=== PATIENT | male | born 1980 | race Two or more races ===

== ENCOUNTER 2016-12-08 16:06 | Inpatient (IN) | payer OTHER ==
[2016-12-08 16:51] VITALS: BMI 21.3
[2016-12-08] MEDS ORDERED: SODIUM CHLORIDE 1,000 ML IV STA ×2 (17:25→20:42)
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
[2016-12-08] MEDS ORDERED: chlordiazePOXIDE HCL 25 MG CAPSULE PO ONE (17:51)
[2016-12-08] MEDS ORDERED: chlordiazePOXIDE HCL 25 MG CAPSULE ONE ×2 (18:03→22:59)
[2016-12-08 18:19] LABS: BASOPHIL 1.1 % (0-2.0); EOSINOPHIL 0.3 % (0-4.5); MCHC 35.3 g/dl (32.0-35.9); MEAN CELL VOLUME 107.6 fl (80-96); MEAN PLT VOLUME 9.2 fl (7.5-11.1); PLATELET COUNT 171 K/MM3 (134-434); RDW 16.7 % (11.9-15.9); WHITE BLOOD COUNT 18.4 K/mm3 (4.0-10.0)
[2016-12-08 18:33] LABS: INR 1.74 (0.82-1.09); PROTHROMBIN TIME (PATIENT) 19.4 SEC (9.98-11.88)
[2016-12-08 18:55] LABS: ALBUMIN 1.9 g/dl (3.4-5.0); ALK PHOS 425 U/L (45-117); ANION GAP 12 (8-16); BILIRUBIN,TOTAL 13.8 mg/dL (0.2-1.0); CALCIUM 8.3 mg/dL (8.5-10.1); CO2 27 mmol/L (21-32); CREATININE 0.6 mg/dL (0.7-1.3); GLUCOSE,RANDOM 91 mg/dL (74-106); SGOT/AST 314 U/L (15-37); SGPT/ALT 36 U/L (12-78); TOT PROT 6.5 g/dl (6.4-8.2)
[2016-12-08 19:44] LABS: PLATELET ESTIMATE ADEQUATE (NORMAL)
[2016-12-08 19:45] LABS: MACROCYTOSIS 2+; TARGET CELLS 2+
[2016-12-08 21:31] LABS: URINE APPEARANCE CLOUDY; URINE BLOOD NEGATIVE (NEGATIVE); URINE COLOR AMBER; URINE GLUCOSE (UA) 1+ (NEGATIVE); URINE KETONE NEGATIVE (NEGATIVE); URINE LEUK ESTERASE NEGATIVE (NEGATIVE); URINE NITRITE NEGATIVE (NEGATIVE); URINE UROBILINOGEN 4.0 E.U/dl mg/dL (0.2-1.0)
[2016-12-08 21:32] LABS: URINE PROTEIN 2+ (NEGATIVE)
[2016-12-08 21:34] LABS: URINE MUCUS MANY; URINE WBC 6 /hpf (3-5)
[2016-12-08 21:57] LABS: URINE MARIJUANA THC NEGATIVE ng/ml (CUTOFF=50)
[2016-12-08] MEDS ORDERED: VANCOMYCIN 1 GRAM (PRE-DOCKED) 250 ML IVPB ONE (22:59)
[2016-12-08] MEDS ORDERED: VANCOMYCIN 1,000 MG in DEXTROSE 5%-WATER - 500 ML IVPB ONE (22:59)
[2016-12-08] MEDS ORDERED: PIPERACILLIN/TAZOB 3.375 GM 3.375 GM in DEXTROSE 5%-WATER - 50 ML IVPB ONE (22:59)
[2016-12-08] MEDS ORDERED: PIPERACILLIN/TAZOB 3.375 GM 50 ML IVPB ONE (22:59)
--- NOTE | 2016-12-08 23:29 | PN ---
Teaching Attending Note Name of Resident: Gautam Mejía ATTENDING PHYSICIAN STATEMENT I saw and evaluated the patient. I reviewed the resident's note and discussed the case with the resident. I agree with the resident's findings and plan as documented. SUBJECTIVE: 36 yo M with hx. of htn, liver cirrhosis, etoh abuse, who presents from [facility] for eval. of abdominal pain. States he was recently diagnosed with a UTI, but did not take any medications for it as he was "drinking." States he has never seen a intramural director, but was diagnosed with a "liver problem." Pt. is a poor historian. OBJECTIVE: Physical: VS: Vital Signs Period Temp Pulse Resp BP Sys/Malik Pulse Ox Last 24 Hr 98.7 F-98.9 F 107-110 17-18 119-128/58-96 97-98 GEN: NAD, Resting in bed, able to speak full sentences, [id number] HEENT: NCAT, PERRL, Icteric Sclera, Throat without erythema or exudates CARD: RRR S1, S2 RESP: CTAB ABD: BS X4, distended abdomen, with abdominal strai, Hepatomegaly EXT: - C/C/E CBCD WBC 18.4 K/mm3 (4.0-10.0) H 12/08/16 18:15 RBC 3.21 M/mm3 (4.00-5.60) L 12/08/16 18:15 Hgb 12.2 GM/dL (11.7-16.9) 12/08/16 18:15 Hct 34.5 % (35.4-49) L 12/08/16 18:15 MCV 107.6 fl (80-96) H 12/08/16 18:15 MCHC 35.3 g/dl (32.0-35.9) 12/08/16 18:15 RDW 16.7 % (11.9-15.9) H 12/08/16 18:15 Plt Count 171 K/MM3 (134-434) 12/08/16 18:15 MPV 9.2 fl (7.5-11.1) 12/08/16 18:15 CMP Sodium 138 mmol/L (136-145) 12/08/16 18:15 Potassium 3.6 mmol/L (3.5-5.1) 12/08/16 18:15 Chloride 99 mmol/L (98-107) 12/08/16 18:15 Carbon Dioxide 27 mmol/L (21-32) 12/08/16 18:15 Anion Gap 12 (8-16) 12/08/16 18:15 BUN 5 mg/dL (7-18) L 12/08/16 18:15 Creatinine 0.6 mg/dL (0.7-1.3) L 12/08/16 18:15 Creat Clearance w eGFR > 60 (>60) 12/08/16 18:15 Random Glucose 91 mg/dL (74-106) 12/08/16 18:15 Calcium 8.3 mg/dL (8.5-10.1) L 12/08/16 18:15 Total Bilirubin 13.8 mg/dL (0.2-1.0) H 12/08/16 18:15 AST 314 U/L (15-37) H 12/08/16 18:15 ALT 36 U/L (12-78) 12/08/16 18:15 Alkaline Phosphatase 425 U/L (45-117) H 12/08/16 18:15 Total Protein 6.5 g/dl (6.4-8.2) 12/08/16 18:15 Albumin 1.9 g/dl (3.4-5.0) L 12/08/16 18:15 CXR- Pending EKG: NSR Q waves anteroseptal leads CT A/P: IMPRESSION: Ascites is noted which is probably moderate in volume. Hepatomegaly is seen with associated multifocal fatty infiltration. Mild splenomegaly. Mesenteric varices. There is mild diffuse gallbladder wall thickening probably in association with hepatic disease / ascites and less likely on the basis of acute cholecystitis. No radiopaque biliary calculus is noted. If there is clinical concern for possible acute cholecystitis additional evaluation utilizing a radionuclide HIDA scan may be considered. Several mildly enlarged gastrohepatic ligament lymph nodes are noted. These lymph nodes are probably hyperplastic in nature. Correlation with 3 month follow-up CT or MRI is suggested to document stability/resolution. ASSESSMENT AND PLAN: 36 yo M with hx. of cirrhosis and etoh abuse presents with abdominal pain found to have Sepsis 1.) Severe Sepsis - Likely due to SBP - Cefotaxime 2 q8 - Paracentesis- with fluid studies - GI consult - [place] Cx - Repeat LA 2.) ETOH Abuse w hx. of Cirrhosis - MELD 23, GI consult, chk. Afp - Librium/ CIWA - Detox consult - Banana Bag - Thiamine and Folic A 3.) Hyperbilirubinemia - Due to liver sx - Direct Dominic 4.) Macrocytic Anemia - Chk. B12/Folate 5.) HTN - Hold home meds 6.) Dvt Ppx - SCD Place in Med-Sx
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
[2016-12-09] MEDS ORDERED: chlordiazePOXIDE HCL 25 MG CAPSULE PO PRN (01:44)
[2016-12-09] MEDS ORDERED: WATER IVPB ONE (02:00)
[2016-12-09] MEDS ORDERED: WATER IVPB SCH (02:00)
[2016-12-09] MEDS ORDERED: DEXTROSE 5% IVPB ONE (02:00)
[2016-12-09] MEDS ORDERED: CEFOTAXIME SODIUM IVPB ONE (02:00)
[2016-12-09] MEDS ORDERED: CEFOTAXIME SODIUM IVPB SCH (02:00)
[2016-12-09] MEDS ORDERED: DEXTROSE 5% IVPB SCH (02:00)
[2016-12-09] MEDS ORDERED: SODIUM CHLORIDE 250 ML IV STA (02:24)
[2016-12-09] MEDS: FOLIC ACID INJECTION - 1 MG, THIAMINE HCL 100 MG, MULTIVIT INJECTION ADULT 10 ML in SOD... IVPB ONE ×2 (02:47→03:52)
[2016-12-09] MEDS ORDERED: DEXTROSE 5%-WATER 100 ML IVPB ONE (03:07)
[2016-12-09] MEDS: CEFTRIAXONE 2 GM in DEXTROSE 5%-WATER 100 ML IVPB SCH ×2 (03:12→10:52)
[2016-12-09] MEDS: chlordiazePOXIDE HCL 25 MG CAPSULE PO SCH ×4 (06:11→22:39)
[2016-12-09 07:17] LABS: BASOPHIL 0.4 % (0-2.0); EOSINOPHIL 0.7 % (0-4.5); MCH 37.7 pg (25.7-33.7); MCHC 34.9 g/dl (32.0-35.9); MEAN CELL VOLUME 108.1 fl (80-96); MEAN PLT VOLUME 9.4 fl (7.5-11.1); NEUTROPHILS 80.4 % (42.8-82.8); PLATELET COUNT 155 K/MM3 (134-434); WHITE BLOOD COUNT 18.9 K/mm3 (4.0-10.0)
[2016-12-09 07:35] LABS: CALCIUM 8.1 mg/dL (8.5-10.1)
[2016-12-09 07:36] LABS: INR 1.83 (0.82-1.09); PROTHROMBIN TIME (PATIENT) 20.4 SEC (9.98-11.88)
[2016-12-09 07:39] LABS: ACTIVATED PTT 45.9 SECONDS (26.9-34.4)
[2016-12-09 07:41] LABS: ALBUMIN 1.8 g/dl (3.4-5.0); ALK PHOS 385 U/L (45-117); ANION GAP 8 (8-16); CO2 28 mmol/L (21-32); CREATININE 0.6 mg/dL (0.7-1.3); GLUCOSE,RANDOM 81 mg/dL (74-106); MAGNESIUM 1.6 mg/dL (1.8-2.4); PHOSPHOROUS 2.5 mg/dL (2.5-4.9); SGOT/AST 278 U/L (15-37); SGPT/ALT 30 U/L (12-78); TOT PROT 6.1 g/dl (6.4-8.2)
[2016-12-09 08:15] LABS: BILIRUBIN,DIRECT 10.9 mg/dL (0.0-0.2)
[2016-12-09 08:19] LABS: BILIRUBIN,TOTAL 13.9 mg/dL (0.2-1.0)
[2016-12-09] MEDS ORDERED: PHYTONADIONE 5 MG TABLET PO ONE (09:59)
[2016-12-09] MEDS ORDERED: amLODIPine BESYLATE 5 MG TABLET (FP) PO SCH (10:00)
[2016-12-09] MEDS: PANTOPRAZOLE 20 MG TABLET (FP) PO SCH (10:51)
--- NOTE | 2016-12-09 10:52 | EKG ---
Test Reason : Blood Pressure : / mmHG Vent. Rate : 110 BPM Atrial Rate : 110 BPM P-R Int : 202 ms QRS Dur : 092 ms QT Int : 336 ms P-R-T Axes : 065 -38 078 degrees QTc Int : 454 ms SINUS TACHYCARDIA LEFT AXIS DEVIATION INCOMPLETE RIGHT BUNDLE BRANCH BLOCK CANNOT RULE OUT ANTEROSEPTAL INFARCT , AGE UNDETERMINED ABNORMAL ECG NO PREVIOUS ECGS AVAILABLE Confirmed by TOBISA ELLIOTT, ANA ([id number]) on 12/09/2016 10:52:31 AM Referred By: Confirmed By:ANA COLLADO MD
[2016-12-09] MEDS: FOLIC ACID 1 MG TABLET (FP) PO SCH (10:55)
[2016-12-09] MEDS: THIAMINE HCL 100 MG TABLET (FP) PO SCH (10:55)
--- NOTE | 2016-12-09 12:10 | CONSULT ---
Consult Detox [facility] Reason for Current Admission/Consult: Alcohol detox Referred by:: Gautam Mejía Res - History History of Present Illness: 36 y/o man came to [facility] for detox,however he was c/o severe abdominal pain which necessitated ED evaluation. Librium detox protocol in progress. Pt. has massive ascites for which he'll need paracenthesis. - History Source History Provided By: Patient, Medical Record - Alcohol/Substance Use Hx Alcohol Use: Yes - Current Drug/Alcohol Use Alcohol Route: Oral Frequency: Daily Amount used: Beer >2(6 packs) Date of Last Use: 12/08/16 - Significant Medical Findings: Laboratory Last Values WBC 18.9 K/mm3 (4.0-10.0) H 12/09/16 06:30 RBC 3.17 M/mm3 (4.00-5.60) L 12/09/16 06:30 Hgb 12.0 GM/dL (11.7-16.9) 12/09/16 06:30 Hct 34.3 % (35.4-49) L 12/09/16 06:30 MCV 108.1 fl (80-96) H 12/09/16 06:30 MCH 37.7 pg (25.7-33.7) H 12/09/16 06:30 MCHC 34.9 g/dl (32.0-35.9) 12/09/16 06:30 RDW 17.0 % (11.9-15.9) H 12/09/16 06:30 Plt Count 155 K/MM3 (134-434) 12/09/16 06:30 MPV 9.4 fl (7.5-11.1) 12/09/16 06:30 Neutrophils % 80.4 % (42.8-82.8) 12/09/16 06:30 Lymphocytes % 13.1 % (8-40) D 12/09/16 06:30 Monocytes % 5.4 % (3.8-10.2) 12/09/16 06:30 Eosinophils % 0.7 % (0-4.5) D 12/09/16 06:30 Basophils % 0.4 % (0-2.0) 12/09/16 06:30 Platelet Estimate Adequate (NORMAL) 12/08/16 18:15 Macrocytosis 2+ 12/08/16 18:15 Target Cells 2+ 12/08/16 18:15 INR 1.83 (0.82-1.09) H 12/09/16 06:30 PTT (Actin FS) 45.9 SECONDS (26.9-34.4) H 12/09/16 06:30 Sodium 137 mmol/L (136-145) 12/09/16 06:30 Potassium 3.2 mmol/L (3.5-5.1) L 12/09/16 06:30 Chloride 101 mmol/L (98-107) 12/09/16 06:30 Carbon Dioxide 28 mmol/L (21-32) 12/09/16 06:30 Anion Gap 8 (8-16) 12/09/16 06:30 BUN 5 mg/dL (7-18) L 12/09/16 06:30 Creatinine 0.6 mg/dL (0.7-1.3) L 12/09/16 06:30 Creat Clearance w eGFR > 60 (>60) 12/09/16 06:30 Random Glucose 81 mg/dL (74-106) 12/09/16 06:30 Lactic Acid 2.0 mmol/L (0.4-2.0) 12/09/16 08:00 Calcium 8.1 mg/dL (8.5-10.1) L 12/09/16 06:30 Phosphorus 2.5 mg/dL (2.5-4.9) 12/09/16 06:30 Magnesium 1.6 mg/dL (1.8-2.4) L 12/09/16 06:30 Total Bilirubin 13.9 mg/dL (0.2-1.0) H 12/09/16 06:30 Direct Bilirubin 10.9 mg/dL (0.0-0.2) H* 12/09/16 06:30 GGT Cancelled 12/09/16 09:30 AST 278 U/L (15-37) H 12/09/16 06:30 ALT 30 U/L (12-78) 12/09/16 06:30 Alkaline Phosphatase 385 U/L (45-117) H 12/09/16 06:30 Total Protein 6.1 g/dl (6.4-8.2) L 12/09/16 06:30 Albumin 1.8 g/dl (3.4-5.0) L 12/09/16 06:30 Lipase 564 U/L (73-393) H 12/09/16 06:30 Vitamin B12 1458 pg/ml (180-914) H 12/09/16 06:30 Serum Folate 6 ng/ml (3.1-17.5) 12/09/16 06:30 Urine Color Lyla 12/08/16 21:20 Urine Appearance Cloudy 12/08/16 21:20 Urine pH 5.0 (5.0-8.0) 12/08/16 21:20 Ur Specific [place] 1.025 (1.005-1.025) 12/08/16 21:20 Urine Protein 2+ (NEGATIVE) H 12/08/16 21:20 Urine Glucose (UA) 1+ (NEGATIVE) H 12/08/16 21:20 Urine Ketones Negative (NEGATIVE) 12/08/16 21:20 Urine Blood Negative (NEGATIVE) 12/08/16 21:20 Urine Nitrite Negative (NEGATIVE) 12/08/16 21:20 Urine Bilirubin 4.0 (NEGATIVE) 12/08/16 21:20 Urine Urobilinogen 4.0 e.u/dl mg/dL (0.2-1.0) 12/08/16 21:20 Urine RBC None /hpf (0-3) 12/08/16 21:20 Urine WBC 6 /hpf (3-5) 12/08/16 21:20 Ur Epithelial Cells Few /hpf (FEW) 12/08/16 21:20 Urine Mucus Many 12/08/16 21:20 Opiates Screen Negative ng/ml (CGDFPD=899) 12/08/16 21:20 Methadone Screen Negative ng/ml (XJLUOF=443) 12/08/16 21:20 Acetaminophen < 10 ug/ml (10.0-30.0) L 12/09/16 09:30 Barbiturate Screen Negative ng/ml (ZUANND=919) 12/08/16 21:20 Phencyclidine Screen Negative ng/ml (CUTOFF=25) 12/08/16 21:20 Ur Amphetamines Screen Negative ng/ml (DVTTQH=908) 12/08/16 21:20 MDMA (Ecstasy) Screen Negative ng/ml (XCRZMH=687) 12/08/16 21:20 Benzodiazepines Screen Positive ng/ml (NBHGFJ=790) 12/08/16 21:20 Cocaine Screen Negative ng/ml (BNWOAT=209) 12/08/16 21:20 U Marijuana (THC) Screen Negative ng/ml (CUTOFF=50) 12/08/16 21:20 Alcohol, Quantitative 99.0 mg/dl (0-5) H* 12/08/16 17:51 Blood Type AB POSITIVE 12/09/16 10:54 Antibody Screen Negative 12/08/16 17:51 labs noted CIWA Score - CIWA Score Nausea/Vomitin Muscle Tremors: 4-Moderate,w/Arms Extend Anxiety: 4-Mod. Anxious/Guarded Agitation: 4-Moderately Restless Paroxysmal Sweats: 3 Orientation: 0-Oriented Tacttile Disturbances: 1-Very Mild Itch/Numbness Auditory Disturbances: 0-None Visual Disturbances: 0-None Headache: 0-None Present CIWA-Ar Total Score: 18 Assessment Plan - Diagnosis (1) Ascites Status: Acute Qualifiers: Ascites type: due to alcoholic cirrhosis Qualified Code(s): K70.31 - Alcoholic cirrhosis of liver with ascites (2) Alcohol dependence with uncomplicated withdrawal Status: Acute - Medication Detox Regimen/Protocol: Librium
--- NOTE | 2016-12-09 13:34 | PN ---
Physical Exam: SUBJECTIVE: Patient seen and examined at bed side. he presented from detox facility with LLQ abdominal pain and hematuria. the pain is local,non radiating , 6/10 increased with Alcohol and decreased with laying on left side. last drink was yesterday. He denies any fever, chills, D/C/N/V . He denies any dysuria, frequency but he reports multiple episode of vomiting blood and dark urine.he reports losing 100 pounds within uncertain time. around 5 pm patient complained of chest pain 6/10 , reproducible, non radiating , and MD work up was ordered. OBJECTIVE: Vital Signs Period Temp Pulse Resp BP Sys/Malik Pulse Ox Last 24 Hr 98.3 F-99.4 F 105-117 18-24 105-123/56-84 97-97 GENERAL: The patient is awake, alert, and fully oriented, in mild distress. HEAD: Normal with no signs of trauma. EYES: PERRL, sclera icteric, conjunctiva clear. No ptosis. ENT: moist mucous membranes. NECK: Trachea midline, full range of motion, supple. LUNGS: Breath sounds equal, clear to auscultation bilaterally, no wheezes, no crackles, no accessory muscle use. HEART: tachycardic ,Regular rate and rhythm, S1, S2 without murmur, rub or gallop. ABDOMEN: Soft, LUQ tenderness,distended, diffuse ascities , normoactive bowel sounds, no guarding, no rebound, + hepatosplenomegaly, no masses + shifting dulness, testicle normal size. No Gynecomastia , Occult blood was send to lab. No astrexis. EXTREMITIES: warm, well-perfused, no edema. NEUROLOGICAL: Normal speech, gait not observed. PSYCH: Normal mood, normal affect. SKIN: Warm, dry, normal turgor, no rashes or lesions noted Laboratory Results - last 24 hr 12/09/16 12/09/16 12/09/16 01:01 02:20 06:30 WBC 18.9 H RBC 3.17 L Hgb 12.0 Hct 34.3 L MCV 108.1 H MCH 37.7 H MCHC 34.9 RDW 17.0 H Plt Count 155 MPV 9.4 Neutrophils % 80.4 Lymphocytes % 13.1 D Monocytes % 5.4 Eosinophils % 0.7 D Basophils % 0.4 INR PTT (Actin FS) Sodium Potassium Chloride Carbon Dioxide Anion Gap BUN Creatinine Creat Clearance w eGFR Random Glucose Lactic Acid 2.8 H* 2.9 H* Calcium Phosphorus Magnesium Total Bilirubin Direct Bilirubin GGT AST ALT Alkaline Phosphatase Total Protein Albumin Lipase Vitamin B12 Serum Folate Acetaminophen Blood Type 12/09/16 12/09/16 12/09/16 06:30 06:30 06:30 WBC RBC Hgb Hct MCV MCH MCHC RDW Plt Count MPV Neutrophils % Lymphocytes % Monocytes % Eosinophils % Basophils % INR 1.83 H PTT (Actin FS) 45.9 H Sodium 137 Potassium 3.2 L Chloride 101 Carbon Dioxide 28 Anion Gap 8 BUN 5 L Creatinine 0.6 L Creat Clearance w eGFR > 60 Random Glucose 81 Lactic Acid Calcium 8.1 L Phosphorus 2.5 Magnesium 1.6 L Total Bilirubin 13.9 H Direct Bilirubin 10.9 H* GGT 417 H AST 278 H ALT 30 Alkaline Phosphatase 385 H Total Protein 6.1 L Albumin 1.8 L Lipase 564 H Vitamin B12 Serum Folate Acetaminophen Blood Type Active Medications Generic Name Dose Route Start Last Admin Trade Name Freq PRN Reason Stop Dose Admin Chlordiazepoxide HCl 25 mg 12/09/16 01:44 Librium - PO 12/12/16 01:43 Q4H PRN WITHDRAWAL(CONT SUBST) Chlordiazepoxide HCl 50 mg 12/09/16 05:00 12/09/16 10:51 Librium - PO 12/09/16 23:01 50 mg [id number] RODNEY Administration Chlordiazepoxide HCl 25 mg 12/10/16 05:00 Librium - PO 12/10/16 23:01 [id number] RODNEY Chlordiazepoxide HCl 15 mg 12/11/16 05:00 Librium - PO 12/11/16 23:01 [id number] RODNEY Folic Acid 1 mg 12/09/16 10:00 Folic Acid - PO DAILY [facility] Ceftriaxone Sodium 2 gm/ 100 mls @ 200 mls/hr 12/09/16 02:30 12/09/16 10:52 Dextrose IVPB Not Given DAILY [facility] Pantoprazole Sodium 20 mg 12/09/16 10:00 12/09/16 10:51 Protonix - PO 20 mg DAILY RODNEY Administration Thiamine HCl 100 mg 12/09/16 10:00 Vitamin B1 - PO DAILY [facility] CBC,CMP WBC 18.9 K/mm3 (4.0-10.0) H 12/09/16 06:30 RBC 3.17 M/mm3 (4.00-5.60) L 12/09/16 06:30 Hgb 12.0 GM/dL (11.7-16.9) 12/09/16 06:30 Hct 34.3 % (35.4-49) L 12/09/16 06:30 MCV 108.1 fl (80-96) H 12/09/16 06:30 MCH 37.7 pg (25.7-33.7) H 12/09/16 06:30 MCHC 34.9 g/dl (32.0-35.9) 12/09/16 06:30 RDW 17.0 % (11.9-15.9) H 12/09/16 06:30 Plt Count 155 K/MM3 (134-434) 12/09/16 06:30 MPV 9.4 fl (7.5-11.1) 12/09/16 06:30 Neutrophils % 80.4 % (42.8-82.8) 12/09/16 06:30 Lymphocytes % 13.1 % (8-40) D 12/09/16 06:30 Monocytes % 5.4 % (3.8-10.2) 12/09/16 06:30 Eosinophils % 0.7 % (0-4.5) D 12/09/16 06:30 Basophils % 0.4 % (0-2.0) 12/09/16 06:30 Platelet Estimate Adequate (NORMAL) 12/08/16 18:15 Macrocytosis 2+ 12/08/16 18:15 Target Cells 2+ 12/08/16 18:15 Sodium 137 mmol/L (136-145) 12/09/16 06:30 Potassium 3.2 mmol/L (3.5-5.1) L 12/09/16 06:30 Chloride 101 mmol/L (98-107) 12/09/16 06:30 Carbon Dioxide 28 mmol/L (21-32) 12/09/16 06:30 Anion Gap 8 (8-16) 12/09/16 06:30 BUN 5 mg/dL (7-18) L 12/09/16 06:30 Creatinine 0.6 mg/dL (0.7-1.3) L 12/09/16 06:30 Creat Clearance w eGFR > 60 (>60) 12/09/16 06:30 Random Glucose 81 mg/dL (74-106) 12/09/16 06:30 Lactic Acid 2.0 mmol/L (0.4-2.0) 12/09/16 08:00 Calcium 8.1 mg/dL (8.5-10.1) L 12/09/16 06:30 Phosphorus 2.5 mg/dL (2.5-4.9) 12/09/16 06:30 Magnesium 1.6 mg/dL (1.8-2.4) L 12/09/16 06:30 Total Bilirubin 13.9 mg/dL (0.2-1.0) H 12/09/16 06:30 Direct Bilirubin 10.9 mg/dL (0.0-0.2) H* 12/09/16 06:30 GGT Cancelled 12/09/16 09:30 AST 278 U/L (15-37) H 12/09/16 06:30 ALT 30 U/L (12-78) 12/09/16 06:30 Alkaline Phosphatase 385 U/L (45-117) H 12/09/16 06:30 Total Protein 6.1 g/dl (6.4-8.2) L 12/09/16 06:30 Albumin 1.8 g/dl (3.4-5.0) L 12/09/16 06:30 Lipase 564 U/L (73-393) H 12/09/16 06:30 Vitamin B12 1458 pg/ml (180-914) H 12/09/16 06:30 Serum Folate 6 ng/ml (3.1-17.5) 12/09/16 06:30 12/09/2016 CXR: No acute pathology CT Abdomen: Ascities, hepatomegaly, mild splenomegaly, esophageal varices, Gallbladder thickening with no calculus ,consider HIDA scan. ASSESSMENT/PLAN: 36 y.o. M with pmh of HTN and ETOH abuse presenting with LLQ abdominal pain admitted for sepsis likely 2/2 to SBP and ETOH withdrawal #Severe Sepsis likely 2/2 to SBP -Hx of cirrhosis and ETOH abuse -leukocytosis, tachycardia, lactic acid 2.8 -low protinet low sodium diet -Ceftriaxone 2g IV daily, day 2 -Lactic acid 2.8, tend down to 2 -IVF NS 250 ml Bolus given in the ED -F/u Urine/Blood Cx -IR consult, Dr. Henley for possible paracentesis -Pracentesis was defferef till tomorow due to high INR -Lisa K 10 G IVBP -FFP will be given at 10 PM and repeat INR AM -GI consult, Dr. Shane -AFP pending -Blood level Tylenol negative #ETOH abuse and Alcoholic Cirrhosis, hepatic transaminitis -elevated alk phos and hyperbilirubinemia -AST 316, ALT 36. - Likely secondary to alcohol - RUQ US after taping - AFP pending - Repeat Liver enzyme -Librium protocol -Check serial CIWA scores -Banana Bag given - thiamine 100 mg po daily, folic acid 1 mg PO daily -Detox consult, Dr. Bonilla # Chest pain , likely costochondritis vs previous trauma can not R/O MD - pain is reproducible -EKG, CXR, trop was ordered. -trend trop -morphine 1 gm IVBP for pain -night team will follow the result. - #Total Hyperbilirubinemia likely 2/2 to liver cirrhosis vs choledocholethiasis -Tbili 13.8 -Trend labs - direct bilirubin 10.8 -US after taping -consider MRI per GI # Hypokalemia , Acute -K 3.2 -Repeat in AM -MG 1.8 , -Mg 800 mg PO -repeat Mg - #Macrocytic anemia 2/2 to ETOH abuse -MCV 108 -B12 and folate levels WNL #HTN -Holding Norvasc 5 mg PO daily #FEN/GI -Banana Bag -Wnl -Low sodium, low protein diet #PPx -DVT- SCDs -GI: Protonix 20 mg daily #Dispo -Admit to med surg -IV abx (Ceftriaxone) -Librium protocol Visit type - Emergency Visit Emergency Visit: Yes ED Registration Date: 12/09/16 Care time: The patient presented to the Emergency Department on the above date and was hospitalized for further evaluation of their emergent condition. - New Patient This patient is new to me today: No - Critical Care Critical Care patient: No - Discharge Referral Referred to [facility] Med P.C.: No
[2016-12-09] MEDS ORDERED: PHYTONADIONE 10 MG/1 ML AMP IVPB ONE (15:24)
--- NOTE | 2016-12-09 17:34 | PN ---
Teaching Attending Note Name of Resident: Jose Luis Andrade ATTENDING PHYSICIAN STATEMENT I saw and evaluated the patient. I reviewed the resident's note and discussed the case with the resident. I agree with the resident's findings and plan as documented. SUBJECTIVE: Patient complaining of abdominal pain. OBJECTIVE: Vital Signs Period Temp Pulse Resp BP Sys/Malik Pulse Ox Last 24 Hr 97 F-99.4 F 105-117 18-24 105-132/56-99 97-97 HEART: S1S2, tachycardic LUNGS: Clear ABDOMEN: Soft, distended, mild diffuse tenderness, normal BS, (+) ascites EXTREMITIES: No edema Current Medications Generic Name Dose Route Start Last Admin Trade Name Freq PRN Reason Stop Dose Admin Chlordiazepoxide HCl 25 mg 12/09/16 01:44 Librium - PO 12/12/16 01:43 Q4H PRN WITHDRAWAL(CONT SUBST) Chlordiazepoxide HCl 50 mg 12/09/16 05:00 12/09/16 17:15 Librium - PO 12/09/16 23:01 50 mg [id number] RODNEY Administration Chlordiazepoxide HCl 25 mg 12/10/16 05:00 Librium - PO 12/10/16 23:01 [id number] RODNEY Chlordiazepoxide HCl 15 mg 12/11/16 05:00 Librium - PO 12/11/16 23:01 [id number] RODNEY Folic Acid 1 mg 12/09/16 10:00 12/09/16 10:55 Folic Acid - PO Not Given DAILY [facility] Ceftriaxone Sodium 2 gm/ 100 mls @ 200 mls/hr 12/09/16 02:30 12/09/16 10:52 Dextrose IVPB Not Given DAILY [facility] Pantoprazole Sodium 20 mg 12/09/16 10:00 12/09/16 10:51 Protonix - PO 20 mg DAILY RODNEY Administration Thiamine HCl 100 mg 12/09/16 10:00 12/09/16 10:55 Vitamin B1 - PO Not Given DAILY [facility] ASSESSMENT AND PLAN: This is a 36 year old man with a history of HTN, cirrhosis, alcohol abuse who presented to the ER with LLQ abdominal pain. 1. Severe sepsis (leukocytosis, tachycardia, lactic acid 2.8) possibly secondary to SBP - Continue Rocephin - Plan for paracentesis by IR - GI consult - Follow-up blood and urine cultures 2. Continuous alcohol abuse - Continue Librium detox - Continue thiamine, folic acid 3. Alcoholic cirrhosis 4. Hepatic transaminitis with elevated alk phos and hyperbilirubinemia - Likely secondary to alcohol - RUQ US - AFP pending 5. Macrocytosis secondary to alcohol 6. HTN - Norvasc held
[2016-12-09] MEDS ORDERED: morphine CARPU-JECT 2 MG/1 ML DISP.SYRIN IVPUSH ONE (17:49)
[2016-12-09] MEDS ORDERED: PHYTONADIONE 10 MG/1 ML AMP ONE (18:35)
[2016-12-10] MEDS: chlordiazePOXIDE HCL 25 MG CAPSULE PO SCH ×4 (05:45→22:05)
--- NOTE | 2016-12-10 07:29 | PN ---
Physical Exam: SUBJECTIVE: Patient seen and examined at bed side , no chest pain was reported, abdominal pain improved. he denies any fever, chills, N/V/D/C. OBJECTIVE: Vital Signs Period Temp Pulse Resp BP Sys/Malik Pulse Ox Last 24 Hr 97 F-99.6 F 105-117 20-21 106-132/60-99 97-98 GENERAL: The patient is awake, alert, and fully oriented, in no acute distress. HEAD: Normal with no signs of trauma. EYES: PERRL, sclera icteric, conjunctiva palor. No ptosis. ENT: Ears normal, nares patent, moist mucous membranes. NECK: Trachea midline, full range of motion, supple. LUNGS: Breath sounds equal, clear to auscultation bilaterally, no wheezes, no crackles, no accessory muscle use. HEART: Regular rate and rhythm, S1, S2 without murmur, rub or gallop. ABDOMEN: Soft, LUQ tenderness,distended, diffuse ascities , normoactive bowel sounds, no guarding, no rebound, + hepatosplenomegaly, no masses + shifting dulness, testicle normal size. No Gynecomastia , No astrexis. EXTREMITIES: 2+ pulses, warm, well-perfused, no edema. NEUROLOGICAL: Normal speech, gait not observed. PSYCH: Normal mood, normal affect. SKIN: Warm, dry, normal turgor, no rashes or lesions noted Laboratory Results - last 24 hr 12/09/16 12/09/16 12/09/16 06:30 06:30 06:30 WBC 18.9 H RBC 3.17 L Hgb 12.0 Hct 34.3 L MCV 108.1 H MCH 37.7 H MCHC 34.9 RDW 17.0 H Plt Count 155 MPV 9.4 Neutrophils % 80.4 Lymphocytes % 13.1 D Monocytes % 5.4 Eosinophils % 0.7 D Basophils % 0.4 INR 1.83 H PTT (Actin FS) 45.9 H Sodium 137 Potassium 3.2 L Chloride 101 Carbon Dioxide 28 Anion Gap 8 BUN 5 L Creatinine 0.6 L Creat Clearance w eGFR > 60 Random Glucose 81 Lactic Acid Calcium 8.1 L Phosphorus 2.5 Magnesium 1.6 L Total Bilirubin 13.9 H Direct Bilirubin GGT 417 H AST 278 H ALT 30 Alkaline Phosphatase 385 H Troponin I Total Protein 6.1 L Albumin 1.8 L Lipase Tumor Marker AFP Vitamin B12 Serum Folate Stool Occult Blood Acetaminophen Blood Type 12/09/16 12/09/16 12/09/16 06:30 06:30 06:30 WBC RBC Hgb Hct MCV MCH MCHC RDW Plt Count MPV Neutrophils % Lymphocytes % Monocytes % Eosinophils % Basophils % INR PTT (Actin FS) Sodium Potassium Chloride Carbon Dioxide Anion Gap BUN Creatinine Creat Clearance w eGFR Random Glucose Lactic Acid Calcium Phosphorus Magnesium Total Bilirubin Direct Bilirubin 10.9 H* GGT AST ALT Alkaline Phosphatase Troponin I Total Protein Albumin Lipase 564 H Tumor Marker AFP 2.1 Vitamin B12 1458 H Serum Folate Stool Occult Blood Acetaminophen Blood Type 12/09/16 12/09/16 12/09/16 06:30 08:00 09:30 WBC RBC Hgb Hct MCV MCH MCHC RDW Plt Count MPV Neutrophils % Lymphocytes % Monocytes % Eosinophils % Basophils % INR PTT (Actin FS) Sodium Potassium Chloride Carbon Dioxide Anion Gap BUN Creatinine Creat Clearance w eGFR Random Glucose Lactic Acid 2.0 Calcium Phosphorus Magnesium Total Bilirubin Direct Bilirubin GGT AST ALT Alkaline Phosphatase Troponin I Total Protein Albumin Lipase Tumor Marker AFP Vitamin B12 Serum Folate 6 Stool Occult Blood Acetaminophen < 10 L Blood Type 12/09/16 12/09/16 12/09/16 09:30 10:54 17:00 WBC RBC Hgb Hct MCV MCH MCHC RDW Plt Count MPV Neutrophils % Lymphocytes % Monocytes % Eosinophils % Basophils % INR PTT (Actin FS) Sodium Potassium Chloride Carbon Dioxide Anion Gap BUN Creatinine Creat Clearance w eGFR Random Glucose Lactic Acid Calcium Phosphorus Magnesium Total Bilirubin Direct Bilirubin GGT Cancelled AST ALT Alkaline Phosphatase Troponin I Total Protein Albumin Lipase Tumor Marker AFP Vitamin B12 Serum Folate Stool Occult Blood Negative Acetaminophen Blood Type AB POSITIVE 12/09/16 18:00 WBC RBC Hgb Hct MCV MCH MCHC RDW Plt Count MPV Neutrophils % Lymphocytes % Monocytes % Eosinophils % Basophils % INR PTT (Actin FS) Sodium Potassium Chloride Carbon Dioxide Anion Gap BUN Creatinine Creat Clearance w eGFR Random Glucose Lactic Acid Calcium Phosphorus Magnesium Total Bilirubin Direct Bilirubin GGT AST ALT Alkaline Phosphatase Troponin I < 0.02 Total Protein Albumin Lipase Tumor Marker AFP Vitamin B12 Serum Folate Stool Occult Blood Acetaminophen Blood Type Active Medications Generic Name Dose Route Start Last Admin Trade Name Freq PRN Reason Stop Dose Admin Chlordiazepoxide HCl 25 mg 12/09/16 01:44 Librium - PO 12/12/16 01:43 Q4H PRN WITHDRAWAL(CONT SUBST) Chlordiazepoxide HCl 25 mg 12/10/16 05:00 12/10/16 05:45 Librium - PO 12/10/16 23:01 25 mg [id number] RODNEY Administration Chlordiazepoxide HCl 15 mg 12/11/16 05:00 Librium - PO 12/11/16 23:01 [id number] RODNEY Folic Acid 1 mg 12/09/16 10:00 12/09/16 10:55 Folic Acid - PO Not Given DAILY R[facility] Ceftriaxone Sodium 2 gm/ 100 mls @ 200 mls/hr 12/09/16 02:30 12/09/16 10:52 Dextrose IVPB Not Given DAILY [facility] Pantoprazole Sodium 20 mg 12/09/16 10:00 12/09/16 10:51 Protonix - PO 20 mg DAILY RODNEY Administration Thiamine HCl 100 mg 12/09/16 10:00 12/09/16 10:55 Vitamin B1 - PO Not Given DAILY [facility] CBC, BMP 12/10/16 08:00 12/10/16 08:00 Hepatic Panel Total Bilirubin 16.5 mg/dL (0.2-1.0) H* 12/10/16 08:00 Direct Bilirubin 10.9 mg/dL (0.0-0.2) H* 12/09/16 06:30 AST 240 U/L (15-37) H 12/10/16 08:00 ALT 28 U/L (12-78) 12/10/16 08:00 Alkaline Phosphatase 372 U/L (45-117) H 12/10/16 08:00 Albumin 2.0 g/dl (3.4-5.0) L 12/10/16 08:00 ASSESSMENT/PLAN: 36 y.o. M with pmh of HTN and ETOH abuse presenting with LLQ abdominal pain admitted for sepsis likely 2/2 to SBP and ETOH withdrawal #Severe Sepsis likely 2/2 to SBP -Hx of cirrhosis and ETOH abuse -leukocytosis, tachycardia, lactic acid 2.8 at admission -low protinet low sodium diet - continue Ceftriaxone 2g IV daily, day 2(not given ) -Lactic acid 2.8, tend down to 2 -IVF NS 250 ml Bolus given in ED -Urine culture negative /Blood Cx No growth after 24 hour - paracentesis doen today 12/10 by IR -Lisa K 10 G IVBP given yesterday -FFP given at 10 PM given yesterday -GI consult, Dr. Shane -AFP negative -Blood level Tylenol negative - hep A,B, C serology, AMA, Antismooth muscle antibody, iron, tibc, ferritn, hieu and ceruloplasmin. ordered by GI - start lasix 20 po daily ,acceptable weight loss would be 2 pounds a week of diuresis -aldactone 25 mg po bid -maddrey equation calculates to 52. possible mortality 50 % if continue drinking in the next 3 months -start pentoxifilline 400 TID # Alcoholic hepatitis possible Cirrhosis, can not R/o viral hepatitis -elevated alk phos and hyperbilirubinemia -AST 240, ALT 28. - RUQ US after Ascitis fluids analysis - AFP negative - trend Liver enzyme -Librium protocol -Banana Bag given - thiamine 100 mg po daily, folic acid 1 mg PO daily -Detox consult, Dr. Bonilla # Coagulopathy secondary to liver disease * Vitamin K, FFP given for procedure # Continuous alcohol abuse * Continue Librium detox * Continue thiamine, folic acid # Chest pain , likely costochondritis vs previous trauma can not R/O CO , resolved * pain is reproducible * EKG no ST,T wave changes , CXR no acute pathology , trop negative * morphine 1 gm IVBP given for pain - #Total Hyperbilirubinemia likely 2/2 to alcoholic liver cirrhosis vs choledocholethiasis -Tbili 13.8 yesterday , 16.5 today -Trend labs - direct bilirubin 10.9 -US after taping -consider MRI after taping per GI # Hypokalemia , Acute, Hypomagnesemia -K 3.3, replete with KCL -MG 1.8 -repeat Mg,K ,P level #Hypophosphatemia * NeutraPhos started * #Macrocytic anemia 2/2 to ETOH abuse -MCV 108 -B12 and folate levels WNL #HTN - continue to hold Norvasc 5 mg PO daily #FEN/GI -Banana Bag -Wnl -Low sodium, low protein diet #PPx -DVT- SCDs -GI: Protonix 20 mg daily #Dispo -Admit to med surg Visit type - Emergency Visit Emergency Visit: Yes ED Registration Date: 12/09/16 Care time: The patient presented to the Emergency Department on the above date and was hospitalized for further evaluation of their emergent condition. - New Patient This patient is new to me today: No - Critical Care Critical Care patient: No - Discharge Referral Referred to [facility] Med P.C.: No
[2016-12-10] MEDS ORDERED: MAGNESIUM OXIDE 400 MG TABLET (FP) PO ONE (08:00)
[2016-12-10 08:49] LABS: MCH 37.3 pg (25.7-33.7); MCHC 34.1 g/dl (32.0-35.9); MEAN CELL VOLUME 109.3 fl (80-96); MEAN PLT VOLUME 9.1 fl (7.5-11.1); PLATELET COUNT 157 K/MM3 (134-434); RDW 17.2 % (11.9-15.9); WHITE BLOOD COUNT 18.3 K/mm3 (4.0-10.0)
[2016-12-10 09:02] LABS: INR 1.82 (0.82-1.09); PROTHROMBIN TIME (PATIENT) 20.3 SEC (9.98-11.88)
[2016-12-10 09:24] LABS: ANION GAP 10 (8-16); CO2 27 mmol/L (21-32); GLUCOSE,RANDOM 85 mg/dL (74-106); MAGNESIUM 1.8 mg/dL (1.8-2.4)
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
[2016-12-10 09:36] LABS: ALK PHOS 372 U/L (45-117); CREATININE 0.7 mg/dL (0.7-1.3); PHOSPHOROUS 1.9 mg/dL (2.5-4.9); SGOT/AST 240 U/L (15-37); SGPT/ALT 28 U/L (12-78); TOT PROT 6.2 g/dl (6.4-8.2)
[2016-12-10 09:44] LABS: BILIRUBIN,TOTAL 16.5 mg/dL (0.2-1.0)
[2016-12-10 10:17] LABS: URINE APPEARANCE SLCLOUDY; URINE BLOOD NEGATIVE (NEGATIVE); URINE COLOR AMBER; URINE GLUCOSE (UA) 1+ (NEGATIVE); URINE KETONE NEGATIVE (NEGATIVE); URINE LEUK ESTERASE NEGATIVE (NEGATIVE); URINE NITRITE NEGATIVE (NEGATIVE); URINE UROBILINOGEN 4.0 E.U/dl mg/dL (0.2-1.0)
[2016-12-10 10:19] LABS: URINE PROTEIN 1+ (NEGATIVE)
[2016-12-10 10:27] LABS: URINE BACTERIA RARE /hpf (NONE SEEN); URINE MUCUS MANY; URINE RBC 2 /hpf (0-3); URINE WBC 1 /hpf (3-5)
[2016-12-10] MEDS ORDERED: PT OWN MED DRAWER 7, Y5N ONE (11:02)
[2016-12-10] MEDS ORDERED: DEXTROSE 5%-WATER 100 ML IVPB ONE (11:03)
[2016-12-10] MEDS: CEFTRIAXONE 2 GM in DEXTROSE 5%-WATER 100 ML IVPB SCH (11:05)
[2016-12-10] MEDS: THIAMINE HCL 100 MG TABLET (FP) PO SCH (11:05)
[2016-12-10] MEDS: POTASSIUM CHLORIDE TABS 20 MEQ TABLET.ER (FP) PO SCH ×2 (11:05→22:05)
[2016-12-10] MEDS: FOLIC ACID 1 MG TABLET (FP) PO SCH (11:05)
[2016-12-10] MEDS: PANTOPRAZOLE 20 MG TABLET (FP) PO SCH (11:05)
[2016-12-10] MEDS: NAPH,MB-DB/K PH,MBDB POWDER PACKET PO SCH ×2 (11:06→17:54)
--- NOTE | 2016-12-10 11:36 | PN ---
Teaching Attending Note Name of Resident: Jose Luis Andrade ATTENDING PHYSICIAN STATEMENT I saw and evaluated the patient. I reviewed the resident's note and discussed the case with the resident. I agree with the resident's findings and plan as documented. SUBJECTIVE: Patient has no complaints. Abdominal pain is better. OBJECTIVE: Vital Signs Period Temp Pulse Resp BP Sys/Malik Pulse Ox Last 24 Hr 97 F-99.6 F 105-116 18-21 106-132/60-99 97-98 HEART: S1S2, tachycardic LUNGS: Clear ABDOMEN: Soft, distended, non-tender, normal BS, (+) ascites EXTREMITIES: No edema Current Medications Generic Name Dose Route Start Last Admin Trade Name Freq PRN Reason Stop Dose Admin Chlordiazepoxide HCl 25 mg 12/09/16 01:44 Librium - PO 12/12/16 01:43 Q4H PRN WITHDRAWAL(CONT SUBST) Chlordiazepoxide HCl 25 mg 12/10/16 05:00 12/10/16 11:06 Librium - PO 12/10/16 23:01 25 mg [id number] RODNEY Administration Chlordiazepoxide HCl 15 mg 12/11/16 05:00 Librium - PO 12/11/16 23:01 [id number] RODNEY Folic Acid 1 mg 12/09/16 10:00 12/10/16 11:05 Folic Acid - PO 1 mg DAILY RODNEY Administration Ceftriaxone Sodium 2 gm/ 100 mls @ 200 mls/hr 12/09/16 02:30 12/10/16 11:05 Dextrose IVPB 200 mls/hr DAILY RODNEY Administration Pantoprazole Sodium 20 mg 12/09/16 10:00 12/10/16 11:05 Protonix - PO 20 mg DAILY RODNEY Administration Potassium Chloride 40 meq 12/10/16 10:00 12/10/16 11:05 K-Dur - PO 12/10/16 22:01 40 meq BID RODNEY Administration Potassium Phos/Sodium Phos 1 packet 12/10/16 11:00 12/10/16 11:06 Phos-Nak Packet - PO 12/11/16 07:01 1 packet TIDAC RODNEY Administration Thiamine HCl 100 mg 12/09/16 10:00 12/10/16 11:05 Vitamin B1 - PO 100 mg DAILY RODNEY Administration ASSESSMENT AND PLAN: This is a 36 year old man with a history of HTN, cirrhosis, alcohol abuse who presented to the ER with LLQ abdominal pain. 1. Severe sepsis (leukocytosis, tachycardia, lactic acid 2.8) possibly secondary to SBP - Continue Rocephin - Paracentesis by IR today - GI consult - Blood cultures negative after 24 hours - Urine culture negative 2. Alcoholic hepatitis and possible cirrhosis - CT abdomen/pelvis shows mild diffuse GB wall thickening, ascites, several mildly enlarged gastrohepatic ligament nodes - AFP normal 3. Coagulopathy secondary to liver disease - Vitamin K, FFP given for procedure 4. Continuous alcohol abuse - Continue Librium detox - Continue thiamine, folic acid 5. Macrocytosis secondary to alcohol 6. HTN - Norvasc held 7. Hypokalemia - Replete ptassium 8. Hypomagnesemia - Given oral magnesium supplementation 9. Hypophosphatemia - NeutraPhos started
[2016-12-10 16:44] LABS: PERITONEAL FLUID BASOPHIL 2 %; PERITONEAL FLUID LYMPHOCYTE 22 %; PERITONEAL FLUID MACROPHAGE 65 %; PERITONEAL FLUID MESOTHELIAL 1 %; PERITONEAL FLUID MONOCYTE 4 %; PERITONEAL FLUID NEUTROPHIL 6 %
[2016-12-10] MEDS ORDERED: MAGNESIUM SULF 50% (8.12 MEQ/2 ML-1 GM VIAL) IVPB ONE (23:18)
[2016-12-11] MEDS: chlordiazePOXIDE 5 MG CAPSULE PO SCH ×3 (05:55→16:50)
[2016-12-11] MEDS: NAPH,MB-DB/K PH,MBDB POWDER PACKET PO SCH (06:24)
[2016-12-11 07:19] LABS: MCH 37.7 pg (25.7-33.7); MCHC 34.4 g/dl (32.0-35.9); MEAN CELL VOLUME 109.6 fl (80-96); MEAN PLT VOLUME 8.7 fl (7.5-11.1); PLATELET COUNT 164 K/MM3 (134-434); RDW 17.2 % (11.9-15.9); WHITE BLOOD COUNT 17.5 K/mm3 (4.0-10.0)
[2016-12-11] MEDS: ALBUMIN HUMAN 25% 12.5 GM/50 ML VIAL IVPB SCH (07:45)
[2016-12-11 07:59] LABS: ALBUMIN 1.8 g/dl (3.4-5.0); ANION GAP 11 (8-16); CALCIUM 7.9 mg/dL (8.5-10.1); CO2 25 mmol/L (21-32); CREATININE 0.7 mg/dL (0.7-1.3); GLUCOSE,RANDOM 80 mg/dL (74-106); PHOSPHOROUS 1.8 mg/dL (2.5-4.9); SGOT/AST 201 U/L (15-37); SGPT/ALT 25 U/L (12-78)
[2016-12-11 08:12] LABS: ALK PHOS 329 U/L (45-117); TOT PROT 5.9 g/dl (6.4-8.2)
[2016-12-11] MEDS ORDERED: PT OWN MED DRAWER 7, Y5N ONE ×3 (08:17→16:48)
[2016-12-11] MEDS: PENTOXIFYLLINE 400 MG TABLET.ER PO SCH ×3 (08:21→16:51)
[2016-12-11 08:34] LABS: BILIRUBIN,TOTAL 16.8 mg/dL (0.2-1.0)
[2016-12-11] MEDS ORDERED: DEXTROSE 5%-WATER 100 ML IVPB ONE (09:50)
--- NOTE | 2016-12-11 09:50 | EKG ---
Test Reason : Blood Pressure : / mmHG Vent. Rate : 117 BPM Atrial Rate : 117 BPM P-R Int : 182 ms QRS Dur : 092 ms QT Int : 318 ms P-R-T Axes : 052 -41 077 degrees QTc Int : 443 ms SINUS TACHYCARDIA POSSIBLE LEFT ATRIAL ENLARGEMENT LEFT AXIS DEVIATION INFERIOR INFARCT , AGE UNDETERMINED ANTEROSEPTAL INFARCT (CITED ON OR BEFORE 08-DEC-2016) ABNORMAL ECG WHEN COMPARED WITH ECG OF 08-DEC-2016 23:22, QUESTIONABLE CHANGE IN INITIAL FORCES OF ANTERIOR LEADS Confirmed by ROSALIE GRUBBS MD ([id number]) on 12/11/2016 9:49:48 AM Referred By: Confirmed By:ROSALIE GRUBBS MD
[2016-12-11] MEDS: THIAMINE HCL 100 MG TABLET (FP) PO SCH (09:55)
[2016-12-11] MEDS: CEFTRIAXONE 2 GM in DEXTROSE 5%-WATER 100 ML IVPB SCH (09:55)
[2016-12-11] MEDS: PANTOPRAZOLE 20 MG TABLET (FP) PO SCH (09:55)
[2016-12-11] MEDS: SPIRONOLACTONE 25 MG TABLET (FP) PO SCH ×2 (09:55→21:06)
[2016-12-11] MEDS: FOLIC ACID 1 MG TABLET (FP) PO SCH (09:55)
[2016-12-11] MEDS ORDERED: FUROSEMIDE 20 MG TABLET (FP) PO SCH (10:00)
--- NOTE | 2016-12-11 12:39 | PN ---
Teaching Attending Note Name of Resident: Jose Luis Andrade ATTENDING PHYSICIAN STATEMENT I saw and evaluated the patient. I reviewed the resident's note and discussed the case with the resident. I agree with the resident's findings and plan as documented. SUBJECTIVE:states pain has improved. had multiple BM since paracentesis which he states he tolerated well yesterday. states he noted his belly to be getting larger prior to onset of abdominal pain which is limited to LUQ. states he had similiar episodes in the past, not as severe as this one which self resolved on its own. was not aware previously how sick his liver was although he was told in the past his liver was bad and to stop drinking. denies CP, SOB, fever, chills, N/V/C/D, hallucinations or confusion OBJECTIVE: Last Vital Signs Temp Pulse Resp BP Pulse Ox 98.6 F 109 H 18 126/86 98 12/11/16 05:56 12/11/16 09:00 12/11/16 09:00 12/11/16 09:00 12/10/16 21:00 General NAD HEENT +icteric CV S1 S2 tachycardic Lungs CTA B/l no wheezing/rales/rhonchi Abdomen soft + LUQ tenderness +distention +shifting dullness no hemangioma or caput medusa Extremities no pedal edema, no asterixis ASSESSMENT AND PLAN: 36 yo M with PMH of HTN, cirrhosis, alcohol abuse who presented to the ER with LLQ abdominal pain. 1. Severe sepsis (leukocytosis, tachycardia, lactic acid 2.8) possibly secondary to SBP- s/p paracentesis with 3L volume removal. negative for SBP, however remains concerned as already on abx prior to procedure. however low suspicion due to symptoms do not appear to be consistent with SBP. on Ceftriaxone day 3. on pentoxyfilline. will defer to GI if should d/c abx at this time or await Cx reports. 2. Alcoholic hepatitis and possible cirrhosis- Madrey score high 52. SAAG <1.1. elevated GGT. bilirubin continues to trend up. plan for MRCP today per GI. started on aldactone and lasix. autoimmune workup pending. 3. Coagulopathy secondary to liver disease- Vitamin K, FFP given for procedure 4. Continuous alcohol abuse- CIWA 0. on librium protocol. completes today. cont thiamine/folate/MVI 5. Macrocytosis secondary to alcohol 6. HTN-normotensive. cont to hold Norvasc 7. Hypophosphatemia- neutraphos 8. Hypomagnesemia- resolved 9. Hypokalemia- kcl po. should improve with potassium sparing diuretic 10. pt stated he wanted to go home since he felt better. explained to him that his liver is failing and that his situation is acute and requires hospitalization. explained high risk of mortality if he is not monitored closely especially if returns to drinking alcohol. verbalized understanding and risks. states he will reconsider staying.
--- NOTE | 2016-12-11 12:46 | PATH ---
Cytology Non-Gynecological Report Patient Name: CHRISTOPHER PRADHAN [facility]. Rec. #: [id number] /Age/Gender: 1980 (Age: 36) / M Account: [id number] Location: [address] [place] [address]/[facility] Taken: 12/10/2016 Received: 12/10/2016 Reported: 12/11/2016 Physicians: Vicki Decker M.D. Shiney Koshy, M.D. Frank Turchioe, M.D. Specimen(s) Received A: PERITONEAL FLUID RLQ IN 50% ALCOHOL B: PERITONEAL FLUID RLQ FRESH Clinical History Ascites Final Diagnosis A,B. PERITONEAL FLUID, RIGHT LOWER QUADRANT, PARACENTESIS: SATISFACTORY FOR EVALUATION. NO MALIGNANT CELLS IDENTIFIED. REACTIVE MESOTHELIAL CELLS, HISTIOCYTES AND LYMPHOCYTES. Electronically Signed Javan Norman M.D. Gross Description A. Received is a 50 cc of yellow fluid in 50% alcohol. One cytofunnel slide and one cell block are made. B. Received is 3000 cc of yellow fluid fresh. One cytofunnel slide and one cell block are made.
[2016-12-11] MEDS ORDERED: NAPH,MB-DB/K PH,MBDB POWDER PACKET PO ONE (13:00)
[2016-12-11] MEDS ORDERED: POTASSIUM CHLORIDE ORAL LIQUID 20 MEQ/15 ML PO ONE (13:00)
--- NOTE | 2016-12-11 13:49 | PN ---
Physical Exam: SUBJECTIVE: Patient seen and examined at bedside. He is doing much better in terms of degree of abdominal distention and pain. No acute events over night. He denies any fever, chills, N/V/D/C, he denies any urinary symptoms. He tried to sign out AMA but changed his mind and agreed to remain in hospital for continued care after we had a discussion in which the purpose of admission and risks of leaving at this time was had. OBJECTIVE: Vital Signs Period Temp Pulse Resp BP Sys/Malik Pulse Ox Last 24 Hr 97.9 F-99.9 F 101-112 18-22 103-139/54-94 98 GENERAL: The patient is awake, alert, and fully oriented, in no acute distress. EYES: + sclera icteric ENT: moist mucous membranes. LUNGS: Breath sounds equal, clear to auscultation bilaterally HEART: Regular rate and rhythm, S1, S2 without murmur, rub or gallop. ABDOMEN: bowel sounds present, moderate abdominal distention with fluid wave and shifting dullness, soft, mild tenderness in LUQ, paracentesis site in RLQ with overlying bandage and no signs of leak, no umbilical hernia EXTREMITIES: warm, well-perfused, no edema NEUROLOGICAL: Normal speech, gait not observed, alert and oriented to person, place and time without asterixis. Laboratory Results - last 24 hr 12/10/16 12/10/16 12/11/16 08:05 12:25 06:30 WBC 17.5 H RBC 3.16 L Hgb 11.9 Hct 34.7 L MCV 109.6 H MCH 37.7 H MCHC 34.4 RDW 17.2 H Plt Count 164 MPV 8.7 Sodium Potassium Chloride Carbon Dioxide Anion Gap BUN Creatinine Creat Clearance w eGFR Random Glucose Calcium Phosphorus Magnesium Total Bilirubin AST ALT Alkaline Phosphatase Total Protein Albumin Urine Color Lyla Urine Appearance Slcloudy Urine pH 6.0 Ur Specific Oxford 1.020 Urine Protein 1+ H Urine Glucose (UA) 1+ H Urine Ketones Negative Urine Blood Negative Urine Nitrite Negative Urine Bilirubin 4.0 Urine Urobilinogen 4.0 e.u/dl Urine RBC 2 Urine WBC 1 Ur Epithelial Cells Moderate Urine Bacteria Rare Urine Mucus Many Peritoneal WBC 213 Peritoneal RBC 667 Periton Neutrophils 6 Periton Lymphocytes 22 Peritoneal Monocytes 4 Peritoneal Basophils 2 Periton Mesothelial 1 Periton Macrophages 65 Peritoneal Diff Commnt Peritoneal Tot Protein 2 Peritoneal Albumin 1 Peritoneal LDH 65 Peritoneal Glucose 113 Peritoneal Amylase 25 Peritoneal Triglycerid 55 12/11/16 06:30 WBC RBC Hgb Hct MCV MCH MCHC RDW Plt Count MPV Sodium 137 Potassium 3.7 Chloride 101 Carbon Dioxide 25 Anion Gap 11 BUN 4 L D Creatinine 0.7 Creat Clearance w eGFR > 60 Random Glucose 80 Calcium 7.9 L Phosphorus 1.8 L Magnesium 2.0 Total Bilirubin 16.8 H* AST 201 H ALT 25 Alkaline Phosphatase 329 H Total Protein 5.9 L Albumin 1.8 L Urine Color Urine Appearance Urine pH Ur Specific Oxford Urine Protein Urine Glucose (UA) Urine Ketones Urine Blood Urine Nitrite Urine Bilirubin Urine Urobilinogen Urine RBC Urine WBC Ur Epithelial Cells Urine Bacteria Urine Mucus Peritoneal WBC Peritoneal RBC Periton Neutrophils Periton Lymphocytes Peritoneal Monocytes Peritoneal Basophils Periton Mesothelial Periton Macrophages Peritoneal Diff Commnt Peritoneal Tot Protein Peritoneal Albumin Peritoneal LDH Peritoneal Glucose Peritoneal Amylase Peritoneal Triglycerid Active Medications Generic Name Dose Route Start Last Admin Trade Name Freq PRN Reason Stop Dose Admin Chlordiazepoxide HCl 25 mg 12/09/16 01:44 Librium - PO 12/12/16 01:43 Q4H PRN WITHDRAWAL(CONT SUBST) Chlordiazepoxide HCl 15 mg 12/11/16 05:00 12/11/16 11:51 Librium - PO 12/11/16 23:01 15 mg [id number] RODNEY Administration Folic Acid 1 mg 12/09/16 10:00 12/11/16 09:55 Folic Acid - PO 1 mg DAILY RODNEY Administration Furosemide 20 mg 12/11/16 10:00 12/11/16 09:57 Lasix - PO 20 mg DAILY RODNEY Administration Ceftriaxone Sodium 2 gm/ 100 mls @ 200 mls/hr 12/09/16 02:30 12/11/16 09:55 Dextrose IVPB 200 mls/hr DAILY RODNEY Administration Pantoprazole Sodium 20 mg 12/09/16 10:00 12/11/16 09:55 Protonix - PO 20 mg DAILY RODNEY Administration Pentoxifylline 400 mg 12/11/16 08:00 12/11/16 11:51 Trental - PO 400 mg TIDCM RODNEY Administration Spironolactone 25 mg 12/11/16 10:00 12/11/16 09:55 Aldactone - PO 25 mg BID RODNEY Administration Thiamine HCl 100 mg 12/09/16 10:00 12/11/16 09:55 Vitamin B1 - PO 100 mg DAILY RODNEY Administration CBC, BMP 12/11/16 06:30 12/11/16 06:30 Hepatic Panel Total Bilirubin 16.8 mg/dL (0.2-1.0) H* 12/11/16 06:30 Direct Bilirubin 10.9 mg/dL (0.0-0.2) H* 12/09/16 06:30 AST 201 U/L (15-37) H 12/11/16 06:30 ALT 25 U/L (12-78) 12/11/16 06:30 Alkaline Phosphatase 329 U/L (45-117) H 12/11/16 06:30 Albumin 1.8 g/dl (3.4-5.0) L 12/11/16 06:30 ASSESSMENT/PLAN: 36 y.o. M with pmh of HTN and ETOH abuse presenting with LLQ abdominal pain admitted for sepsis likely 2/2 to SBP and ETOH withdrawal #Severe Sepsis likely 2/2 to SBP -Hx of cirrhosis and ETOH abuse -leukocytosis, tachycardia, lactic acid 2.8 at admission -low protinet low sodium diet - continue Ceftriaxone 2g IV daily, day 3 -Lactic acid 2.8, tend down to 2 -IVF NS 250 ml Bolus given in ED -Urine culture negative /Blood Cx No growth after 24 hour - paracentesis done 12/10 by IR -AFP negative - hep A,B, C serology, AMA, Antismooth muscle antibody, iron, tibc, ferritn, hieu and ceruloplasmin. ordered by GI - start lasix 20 po daily ,acceptable weight loss would be 2 pounds a week of diuresis - start aldactone 25 mg po bid -maddrey equation calculates to 52. possible mortality 50 % if continue drinking in the next 3 months -Contine pentoxifilline 400 TID - Apreciate GI input about Images , Dr. Shane -SAAG <1.1. elevated GGT # Alcoholic hepatitis possible Cirrhosis, can not R/o viral hepatitis -elevated alk phos and hyperbilirubinemia -AST 201, ALT 25. - consider RUQ US after Ascitis fluids analysis - AFP negative - trend Liver enzyme -Librium protocol -Check serial CIWA 0 -Banana Bag given - thiamine 100 mg po daily, folic acid 1 mg PO daily -Detox consult, Dr. Bonilla #Total Hyperbilirubinemia likely 2/2 to alcoholic liver cirrhosis vs choledocholethiasis -Tbili 13.8 yesterday , 16.5 today, direct bilirubin 10.9 -Trend labs - consider US or MRI after taping per GI recommendations # Hypokalemia , Acute, Hypomagnesemia -K 3.3, replete with KCL -MG 1.8 -repeat Mg,K ,P level # Coagulopathy secondary to liver disease * Lisa K 10 G IVBP given yesterday * FFP given at 10 PM given yesterday # Continuous alcohol abuse * Continue Librium detox * Continue thiamine, folic acid # Chest pain, likely costochondritis vs previous trauma can not R/O [place] , resolved * pain is reproducible * EKG no ST,T wave changes , CXR no acute pathology , trop negative * morphine 1 gm IVBP given for pain #Hypophosphatemia * NeutraPhos started * #Macrocytic anemia 2/2 to ETOH abuse -MCV 108 -B12 and folate levels WNL #HTN -Holding Norvasc 5 mg PO daily #FEN/GI -On no fluids -Wnl -Low sodium, low protein diet #PPx -DVT- SCDs -GI: Protonix 20 mg daily #Dispo -Admit to med surg Visit type - Emergency Visit Emergency Visit: Yes ED Registration Date: 12/09/16 Care time: The patient presented to the Emergency Department on the above date and was hospitalized for further evaluation of their emergent condition. - New Patient This patient is new to me today: No - Critical Care Critical Care patient: No - Discharge Referral Referred to [facility] Med P.C.: No
--- NOTE | 2016-12-11 16:10 | PN ---
Progress Note (short form) - Note Progress Note: GASTROENTEROLOGY REVIEW OF PARACENTESIS EQUATES TO ASCITES FORM CIRRHOSIS NO PORTAL HTN RECOMMENDATIONS OUTLINEDAND HAVE BEEN STARTED BY THE RESIDENT STAFF SAMEER COLE MD Problem List - Problems (1) Alcoholic hepatitis with ascites Code(s): K70.11 - ALCOHOLIC HEPATITIS WITH ASCITES (2) Alcoholic pancreatitis Code(s): K85.20 - ALCOHOL INDUCED ACUTE PANCREATITIS WITHOUT NECROSIS OR INFCT (3) Abdominal pain Code(s): R10.9 - UNSPECIFIED ABDOMINAL PAIN Qualifiers: Abdominal location: generalized Qualified Code(s): R10.84 - Generalized abdominal pain (4) Alcohol abuse Code(s): F10.10 - ALCOHOL ABUSE, UNCOMPLICATED (5) Alcohol dependence with uncomplicated withdrawal Code(s): F10.230 - ALCOHOL DEPENDENCE WITH WITHDRAWAL, UNCOMPLICATED (6) Ascites Code(s): R18.8 - OTHER ASCITES Qualifiers: Ascites type: due to alcoholic cirrhosis Qualified Code(s): K70.31 - Alcoholic cirrhosis of liver with ascites (7) Elevated LFTs Code(s): R79.89 - OTHER SPECIFIED ABNORMAL FINDINGS OF BLOOD CHEMISTRY (8) Hepatomegaly Code(s): R16.0 - HEPATOMEGALY, NOT ELSEWHERE CLASSIFIED
[2016-12-11] MEDS ORDERED: BISMUTH SUBSALICYLATE 262 MG TAB.CHEW PO ONE (20:41)
[2016-12-12 00:51] VITALS: BP 152/77; PULSE 110; TEMP 98.1
--- NOTE | 2016-12-12 08:17 | HOSP ---
Subjective - Review of Symptoms Events since last encounter: Was called by the nurse because patient wanted to leave AMA. I discussed with the patient the risks of leaving and educated him on the severity of his medical condition. Patient understood he was leaving against medical advice and made the decision to leave. Physical Examination Vital Signs: Vital Signs Temperature 98.1 F 12/11/16 22:00 Pulse Rate 110 H 12/11/16 22:00 Respiratory Rate 20 12/11/16 22:00 Blood Pressure 152/77 12/11/16 22:00 O2 Sat by Pulse Oximetry (%) 98 12/11/16 22:00 Labs: CBC, BMP 12/11/16 06:30 12/11/16 06:30 Visit type - Emergency Visit Emergency Visit: Yes ED Registration Date: 12/09/16 Care time: The patient presented to the Emergency Department on the above date and was hospitalized for further evaluation of their emergent condition. - New Patient This patient is new to me today: Yes Date on this admission: 12/12/16 - Critical Care Critical Care patient: No
--- NOTE | 2016-12-14 11:27 | DS ---
Physical Exam: SUBJECTIVE: Patient is asking to leave against medical advice. The resident long haul truck driver johnathon aguilar explained to him the risk and the danger of his health condition including , but he decide to leave against medical advice. OBJECTIVE: PHYSICAL EXAM LABS HOSPITAL COURSE: Date of Admission:12/09/16 Date of Discharge: 12/14/16 Mr. Foreman is 36 yo M with PMH of HTN, cirrhosis, alcohol abuse who presented to the ER with LLQ abdominal pain. He was diagnosed with Severe sepsis possibly secondary to SBP. GI consulted and he was tabed 3 liter from the ascetics fluid . he was found to be negative for SBP, however remains concerned as already on abx prior to procedure. however low suspicion due to symptoms do not appear to be consistent with SBP. on Ceftriaxone day 3. on pentoxyfilline. patient had alcoholic hepatitis and possible cirrhosis- Madrey score high 52 with SAAG <1.1. elevated GGT. bilirubin continues to trend up. started on aldactone and lasix. autoimmune workup pending. patient was given Vit K, FFP for coagulopathy secondary to liver disease. patient was on libirium protocol, thiamin and folic acid for alchohol intoxication . pt stated he wanted to go home since he felt better. explained to him that his liver is failing and that his situation is acute and requires hospitalization. explained high risk of mortality if he is not monitored closely including , especially if returns to drinking alcohol. verbalized understanding and risks. states he wants to leave against medical advice. Minutes to complete discharge: 30 Discharge Summary Reason For Visit: ALCOHOL ABUSE/ELEVATED LIVER FUNCT/ASCITIES,SEPSIS - Instructions Disposition: AGAINST MEDICAL ADVICE - Home Medications Comprehensive Discharge Medication List: Ambulatory Orders Amlodipine Besylate [Norvasc -] 5 mg PO DAILY 12/08/16 This patient is new to me today: No Emergency Visit: Yes ED Registration Date: 12/09/16 Care time: The patient presented to the Emergency Department on the above date and was hospitalized for further evaluation of their emergent condition. Critical Care patient: No - Discharge Referral Referred to [facility] Med P.C.: No
== END 2016-12-11 23:40 | disposition left against medical advice (07) | DRG 710 ==
LOC: JER 16:06 → JERBED 12-09 00:06 → UNDOADMIN 12-09 01:12 → J5S 12-09 01:56
PROVIDERS: ADMIT Internal Medicine; ATTEND Internal Medicine
PROC: 30233K1 Transfusion of Nonautologous Frozen Plasma into Peripheral Vein, Percutaneous Approach (ICD-10-PCS; 2016-12-09)
PROC: 0W9G3ZX Drainage of Peritoneal Cavity, Percutaneous Approach, Diagnostic (ICD-10-PCS; principal; 2016-12-10)
DX: A41.89 Other specified sepsis (principal); R65.20 Severe sepsis without septic shock; I10 Essential (primary) hypertension; K70.31 Alcoholic cirrhosis of liver with ascites; F10.230 Alcohol dependence with withdrawal, uncomplicated; Y90.4 Blood alcohol level of 80-99 mg/100 ml; F17.210 Nicotine dependence, cigarettes, uncomplicated; K70.11 Alcoholic hepatitis with ascites; R16.1 Splenomegaly, not elsewhere classified; E80.6 Other disorders of bilirubin metabolism; D64.9 Anemia, unspecified; R00.0 Tachycardia, unspecified; M94.0 Chondrocostal junction syndrome [Tietze]; R74.0 Nonspecific elevation of levels of transaminase and lactic acid dehydrogenase [LDH]; D68.8 Other specified coagulation defects; E87.6 Hypokalemia; E83.42 Hypomagnesemia; E83.39 Other disorders of phosphorus metabolism; K85.20 Alcohol induced acute pancreatitis without necrosis or infection; R10.84 Generalized abdominal pain; R16.0 Hepatomegaly, not elsewhere classified; R79.89 Other specified abnormal findings of blood chemistry
CPT/HCPCS: 36415; 36430; 71010-TC; 74177-TC; 76942-TC; 80053; 80307; 81003; 81015; 82042; 82105; 82150; 82248; 82272; 82607; 82746; 82945; 82977; 83605; 83615; 83690; 83735; 84100; 84157; 84478; 84484; 85025; 85027; 85610; 85730; 86850; 86900; 86901; 87040; 87070; 87075; 87086; 87102; 87116; 87205; 87206; 87210; 88108; 88305-TC; 89051; 93005; 93010; 99285-25; P9017

== ENCOUNTER 2017-03-18 15:17 | Inpatient (IN) | payer OTHER ==
--- NOTE | 2017-03-18 15:34 | PDOC ---
Attending Attestation - Resident Resident Name: KeithHerbert - HPI HPI: 03/18/17 16:50 Pt presents to the ED complaining of abdominal pain, nausea and vomiting. Admits to chronic heavy drinking and states that he has been told that he had liver and kidney failure at an outside hospital. - Physicial Exam PE: 03/18/17 16:59 Agree with resident exam. Patient has distended abdomen and appears to be jaundiced, with icteric sclera. Has 2+ pitting edema to the knees b/l. abdomen is diffusely tender. - Medical Decision Making 03/18/17 17:01 pt presents to the ED complaining of diffuse abdominal pain, nausea and vomiting. Appears jaundiced. Concern for SBP, liver failure. Will check labs, likely perform paracentesis, check RUQ US and admit to medicine.
[2017-03-18 16:48] LABS: BASO # 0.1 # (0.1-1); BASO % 0.7 % (0-2.0); EOS % 0.3 % (0-4.5); LYMPH # 2.3 (8-40); MCH 34.8 pg (25.7-33.7); MCHC 34.2 g/dl (32.0-35.9); MEAN CELL VOLUME 101.8 fl (80-96); MEAN PLT VOLUME 9.9 fl (7.5-11.1); MONO # 0.8 # (3.8-10.2); NEUT # 8.5 # (42.8-82.8); NEUT % 72.8 % (42.8-82.8); PLATELET COUNT 180 K/MM3 (134-434); RDW 19.2 % (11.9-15.9); WHITE BLOOD COUNT 11.7 K/mm3 (4.0-10.0)
[2017-03-18 16:58] LABS: INR 1.83 (0.82-1.09); PROTHROMBIN TIME (PATIENT) 20.7 SEC (9.98-11.88)
[2017-03-18 17:01] LABS: ACTIVATED PTT 43.2 SECONDS (26.9-34.4)
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
[2017-03-18 17:08] LABS: ALBUMIN 2.6 g/dl (3.4-5.0); ALK PHOS 547 U/L (45-117); ANION GAP 14 (8-16); BILIRUBIN,TOTAL 5.2 mg/dL (0.2-1.0); CALCIUM 8.3 mg/dL (8.5-10.1); CO2 23 mmol/L (21-32); CREATININE 0.9 mg/dL (0.7-1.3); GLUCOSE,RANDOM 106 mg/dL (74-106); SGOT/AST 352 U/L (15-37); SGPT/ALT 37 U/L (12-78); TOT PROT 7.5 g/dl (6.4-8.2)
[2017-03-18] MEDS ORDERED: FOLIC ACID INJECTION - 1 MG, THIAMINE HCL 100 MG, MULTIVIT INJECTION ADULT 10 ML in SOD... IVPB ONE (18:15)
[2017-03-18] MEDS ORDERED: POTASSIUM CHLORIDE TABS 20 MEQ TABLET.ER (FP) PO ONE ×2 (18:15→18:25)
[2017-03-18] MEDS ORDERED: chlordiazePOXIDE HCL 25 MG CAPSULE PO ONE (18:20)
[2017-03-18] MEDS ORDERED: chlordiazePOXIDE HCL 25 MG CAPSULE ONE (18:25)
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
[2017-03-18] MEDS ORDERED: chlordiazePOXIDE HCL 25 MG CAPSULE PO PRN (22:55)
[2017-03-18] MEDS ORDERED: chlordiazePOXIDE HCL 25 MG CAPSULE PO SCH (23:00)
[2017-03-18] MEDS ORDERED: PHYTONADIONE 10 MG/1 ML AMP SQ ONE (23:02)
--- NOTE | 2017-03-18 23:10 | PN ---
Teaching Attending Note Name of Resident: Jose Luis Andrade ATTENDING PHYSICIAN STATEMENT I saw and evaluated the patient. I reviewed the resident's note and discussed the case with the resident. I agree with the resident's findings and plan as documented. SUBJECTIVE: OBJECTIVE: CBCD WBC 11.7 K/mm3 (4.0-10.0) H D 03/18/17 16:30 RBC 2.67 M/mm3 (4.00-5.60) L 03/18/17 16:30 Hgb 9.3 GM/dL (11.7-16.9) L D 03/18/17 16:30 Hct 27.1 % (35.4-49) L D 03/18/17 16:30 MCV 101.8 fl (80-96) H 03/18/17 16:30 MCHC 34.2 g/dl (32.0-35.9) 03/18/17 16:30 RDW 19.2 % (11.9-15.9) H D 03/18/17 16:30 Plt Count 180 K/MM3 (134-434) 03/18/17 16:30 MPV 9.9 fl (7.5-11.1) D 03/18/17 16:30 CMP Sodium 146 mmol/L (136-145) H 03/18/17 16:30 Potassium 3.1 mmol/L (3.5-5.1) L 03/18/17 16:30 Chloride 109 mmol/L (98-107) H 03/18/17 16:30 Carbon Dioxide 23 mmol/L (21-32) 03/18/17 16:30 Anion Gap 14 (8-16) 03/18/17 16:30 BUN 3 mg/dL (7-18) L D 03/18/17 16:30 Creatinine 0.9 mg/dL (0.7-1.3) D 03/18/17 16:30 Creat Clearance w eGFR > 60 (>60) 03/18/17 16:30 Random Glucose 106 mg/dL (74-106) D 03/18/17 16:30 Calcium 8.3 mg/dL (8.5-10.1) L 03/18/17 16:30 Total Bilirubin 5.2 mg/dL (0.2-1.0) H D 03/18/17 16:30 AST 352 U/L (15-37) H D 03/18/17 16:30 ALT 37 U/L (12-78) D 03/18/17 16:30 Alkaline Phosphatase 547 U/L (45-117) H D 03/18/17 16:30 Total Protein 7.5 g/dl (6.4-8.2) D 03/18/17 16:30 Albumin 2.6 g/dl (3.4-5.0) L D 03/18/17 16:30 INR, PTT INR 1.83 (0.82-1.09) H 03/18/17 16:30 ASSESSMENT AND PLAN: Alcohol Abuse with h/o cirrhosis secondary to alcohol. impending withdrawal IVF, Thiamine, Folate and Multivitamin Ativan PRN as per CIWA protocol Macrocytic Anemia Coagulopathy secondary to alcoholic cirrhosis- INR elevate- will give FFP and Vitamin K Tobacco Dependence Nicotine patch 14mg daily
[2017-03-18] MEDS ORDERED: LORazepam 2 MG/ML SDV VIAL IVPUSH ONE (23:11)
[2017-03-18] MEDS ORDERED: LORazepam 2 MG/ML SDV VIAL IVPUSH PRN (23:13)
[2017-03-18] MEDS ORDERED: PHYTONADIONE 10 MG/1 ML AMP ONE (23:20)
[2017-03-18] MEDS ORDERED: LORazepam 2 MG/ML SDV VIAL ONE (23:20)
[2017-03-18] MEDS ORDERED: POTASSIUM CHLORIDE 20 MEQ PREMIX IVPB 100 ML IVPB ONE (23:47)
[2017-03-18] MEDS ORDERED: morphine SULFATE 4 MG/ML VIAL IVPUSH ONE (23:49)
[2017-03-19 00:52] VITALS: BMI 34.7
[2017-03-19] MEDS: KCL 10 MEQ IVPB 10 MEQ/100 ML INFUS.BAG IVPB SCH ×2 (01:20→02:23)
[2017-03-19 02:33] LABS: ANISOCYTOSIS 1+; MACROCYTOSIS 1+
[2017-03-19 02:34] LABS: PLATELET ESTIMATE ADEQUATE
[2017-03-19 05:23] LABS: URINE APPEARANCE SLCLOUDY; URINE BLOOD NEGATIVE (NEGATIVE); URINE COLOR AMBER; URINE GLUCOSE (UA) NEGATIVE (NEGATIVE); URINE KETONE NEGATIVE (NEGATIVE); URINE LEUK ESTERASE NEGATIVE (NEGATIVE); URINE NITRITE NEGATIVE (NEGATIVE); URINE PROTEIN NEGATIVE (NEGATIVE); URINE UROBILINOGEN 4.0 E.U/dl mg/dL (0.2-1.0)
--- NOTE | 2017-03-19 06:45 | PN ---
Teaching Attending Note Name of Resident: Jose Luis Andrade ATTENDING PHYSICIAN STATEMENT I saw and evaluated the patient. I reviewed the resident's note and discussed the case with the resident. I agree with the resident's findings and plan as documented. SUBJECTIVE: 36 m with c/o left sided abdominal pain and distention for 2 weeks. OBJECTIVE: GEN: acute distress, and anxious HEENT: NC, At, PERRLA, anicteric sclera, MMM CVS: RRR, S1,S2 LUNGS: CTA Abd: distended, fluid shift, left sided tenderness Ext: nl rom, 2+ edema neuro: [employer]ELOP[employer] REP 2-12 intact CBCD WBC 11.7 K/mm3 (4.0-10.0) H D 03/18/17 16:30 RBC 2.67 M/mm3 (4.00-5.60) L 03/18/17 16:30 Hgb 9.3 GM/dL (11.7-16.9) L D 03/18/17 16:30 Hct 27.1 % (35.4-49) L D 03/18/17 16:30 MCV 101.8 fl (80-96) H 03/18/17 16:30 MCHC 34.2 g/dl (32.0-35.9) 03/18/17 16:30 RDW 19.2 % (11.9-15.9) H D 03/18/17 16:30 Plt Count 180 K/MM3 (134-434) 03/18/17 16:30 MPV 9.9 fl (7.5-11.1) D 03/18/17 16:30 CMP Sodium 146 mmol/L (136-145) H 03/18/17 16:30 Potassium 3.1 mmol/L (3.5-5.1) L 03/18/17 16:30 Chloride 109 mmol/L (98-107) H 03/18/17 16:30 Carbon Dioxide 23 mmol/L (21-32) 03/18/17 16:30 Anion Gap 14 (8-16) 03/18/17 16:30 BUN 3 mg/dL (7-18) L D 03/18/17 16:30 Creatinine 0.9 mg/dL (0.7-1.3) D 03/18/17 16:30 Creat Clearance w eGFR > 60 (>60) 03/18/17 16:30 Calcium 8.3 mg/dL (8.5-10.1) L 03/18/17 16:30 Total Bilirubin 5.2 mg/dL (0.2-1.0) H D 03/18/17 16:30 AST 352 U/L (15-37) H D 03/18/17 16:30 ALT 37 U/L (12-78) D 03/18/17 16:30 Alkaline Phosphatase 547 U/L (45-117) H D 03/18/17 16:30 Total Protein 7.5 g/dl (6.4-8.2) D 03/18/17 16:30 Albumin 2.6 g/dl (3.4-5.0) L D 03/18/17 16:30 ASSESSMENT AND PLAN: Alcoholic abuse with cirrhosis and ascites with coagulopathy INR elevated Thiamine, folate, multivitamin Spironolactone 100mg and Lasix 40mg daily FFP and vitamin K to reverse coagulopathy, repeat PT, INR Paracentesis in am if stable Ativan 2mg q4h prn as per CIWA protocol.
[2017-03-19 08:40] LABS: ALBUMIN 2.5 g/dl (3.4-5.0); ALK PHOS 566 U/L (45-117); AMYLASE 85 U/L (25-115); ANION GAP 13 (8-16); BILIRUBIN,TOTAL 5.3 mg/dL (0.2-1.0); CALCIUM 8.3 mg/dL (8.5-10.1); CO2 23 mmol/L (21-32); CREATININE 0.9 mg/dL (0.7-1.3); GLUCOSE,RANDOM 82 mg/dL (74-106); MAGNESIUM 1.4 mg/dL (1.8-2.4); SGOT/AST 382 U/L (15-37); SGPT/ALT 37 U/L (12-78); TOT PROT 7.3 g/dl (6.4-8.2)
[2017-03-19 09:07] LABS: URINE LEUK ESTERASE Negative (NEGATIVE)
[2017-03-19] MEDS: THIAMINE HCL 100 MG TABLET (FP) PO SCH (09:20)
[2017-03-19] MEDS: FOLIC ACID 1 MG TABLET (FP) PO SCH (09:20)
[2017-03-19] MEDS: SPIRONOLACTONE 25 MG TABLET (FP) PO SCH (09:20)
[2017-03-19] MEDS: FUROSEMIDE 40 MG TABLET (FP) PO SCH (09:20)
[2017-03-19] MEDS: NICOTINE 14 MG/24 HOURS TOPICAL PATCH TD SCH (09:20)
[2017-03-19 09:47] LABS: INR 1.73 (0.82-1.09); PROTHROMBIN TIME (PATIENT) 19.5 SEC (9.98-11.88)
[2017-03-19] MEDS ORDERED: POTASSIUM CHLORIDE 30 MEQ in SODIUM CHLORIDE 300 ML IVPB ONE (10:00)
[2017-03-19] MEDS ORDERED: PANTOPRAZOLE 20 MG TABLET (FP) PO SCH (10:00)
[2017-03-19] MEDS ORDERED: MAGNESIUM SULF 50% (8.12 MEQ/2 ML-1 GM VIAL) IVPB ONE (11:30)
--- NOTE | 2017-03-19 12:21 | CON.GI ---
Consult Consult Specialty:: GI - History of Present Illness History of Present Illness: A 36 yom, daily vodka since teenager with known "bad liver" admitted for left- sided abdominal pain and distended abdomen. The pain is chronic however got worse in the last 2 days, associated with nausea. chills and vomiting. Denies diarrhea, melena, hematochezia, jaundice, lethargy. In ED, US of the abdomen showed moderate ascites, evidence of PHTN and liver cirrhosis. Blood alcohol 336 , elevated lipase, WBC, Afebrile, transaminitis with cholestasis. - History Source History Provided By: Patient, Medical Record - Past Medical History Pulmonary: Yes: Asthma Hepatobiliary: Yes: Other ( Alcohol abuse) - Alcohol/Substance Use Hx Alcohol Use: Yes - Smoking History Smoking history: Current every day smoker Have you smoked in the past 12 months: Yes Aproximately how many cigarettes per day: 4 Home Medications - Allergies Allergies/Adverse Reactions: Allergies Allergy/AdvReac Type Severity Reaction Status Date / Time No Known Drug Allergies Allergy Verified 12/09/16 10:02 shellfish derived AdvReac Severe Verified 12/09/16 10:01 - Home Medications Home Medications: Ambulatory Orders Amlodipine Besylate [Norvasc -] 5 mg PO DAILY 12/08/16 Family Disease History - Family Disease History Family Disease History: Other: Father ( unknown reason), Mother ( mother alive states well) Review of Systems Findings/Remarks: please refer to H&P and HPI Physical Exam-GI Vital Signs: Vital Signs Temperature 98.4 F 03/19/17 09:00 Pulse Rate 97 H 03/19/17 09:00 Respiratory Rate 18 03/19/17 09:00 Blood Pressure 140/86 03/19/17 09:00 O2 Sat by Pulse Oximetry (%) 97 03/19/17 09:00 Constitutional: Yes: Calm Eyes: Yes: Sclera Icterus HENT: Yes: Atraumatic Neck: Yes: Supple Cardiovascular: Yes: Tachycardia Respiratory: Yes: Regular Gastrointestinal Inspection: Yes: Ascites, Distention ...Auscultate: Yes: Normoactive Bowel Sounds ...Palpate: Yes: Soft. No: Firm/Rigid, Guarding, Mass, Tenderness, Tenderness, Epigastium, Tenderness, Rebound ...Percussion: Yes: Fluid Wave Neurological: Yes: Other (recieved ativan) Labs: CBC, BMP 03/19/17 06:15 INR, PTT INR 1.73 (0.82-1.09) H 03/19/17 06:15 Abnormal Lab Results 03/18/17 03/18/17 03/18/17 16:30 16:30 16:30 WBC 11.7 H D RBC 2.67 L Hgb 9.3 L D Hct 27.1 L D MCV 101.8 H MCH 34.8 H RDW 19.2 H D Absolute Neuts (auto) 8.5 L Absolute Lymphs (auto) 2.3 L Absolute Monos (auto) 0.8 L PT with INR INR PTT (Actin FS) Sodium 146 H Potassium 3.1 L Chloride 109 H BUN 3 L D Calcium 8.3 L Magnesium Total Bilirubin 5.2 H D AST 352 H D Alkaline Phosphatase 547 H D Albumin 2.6 L D Lipase 495 H Vitamin B12 Alcohol, Quantitative 331.6 H* 03/18/17 03/19/17 03/19/17 16:30 06:15 06:15 WBC RBC Hgb Hct MCV MCH RDW Absolute Neuts (auto) Absolute Lymphs (auto) Absolute Monos (auto) PT with INR 20.70 H 19.50 H INR 1.83 H 1.73 H PTT (Actin FS) 43.2 H Sodium Potassium 3.1 L Chloride 109 H BUN 3 L Calcium 8.3 L Magnesium 1.4 L D Total Bilirubin 5.3 H AST 382 H Alkaline Phosphatase 566 H Albumin 2.5 L Lipase 536 H Vitamin B12 Alcohol, Quantitative 03/19/17 03/19/17 06:15 06:15 WBC RBC Hgb Hct MCV MCH RDW Absolute Neuts (auto) Absolute Lymphs (auto) Absolute Monos (auto) PT with INR INR PTT (Actin FS) 43.8 H Sodium Potassium Chloride BUN Calcium Magnesium Total Bilirubin AST Alkaline Phosphatase Albumin Lipase Vitamin B12 1714 H D Alcohol, Quantitative Imaging - Results Ultrasound: Report Reviewed Problem List - Problems (1) Abdominal pain Code(s): R10.9 - UNSPECIFIED ABDOMINAL PAIN Qualifiers: Abdominal location: left lower quadrant Qualified Code(s): R10.32 - Left lower quadrant pain (2) Alcoholic hepatitis with ascites Code(s): K70.11 - ALCOHOLIC HEPATITIS WITH ASCITES (3) Alcohol abuse Code(s): F10.10 - ALCOHOL ABUSE, UNCOMPLICATED (4) Alcoholic pancreatitis Code(s): K85.20 - ALCOHOL INDUCED ACUTE PANCREATITIS WITHOUT NECROSIS OR INFCT (5) Ascites Code(s): R18.8 - OTHER ASCITES Qualifiers: Ascites type: due to alcoholic cirrhosis Qualified Code(s): K70.31 - Alcoholic cirrhosis of liver with ascites (6) Elevated LFTs Code(s): R79.89 - OTHER SPECIFIED ABNORMAL FINDINGS OF BLOOD CHEMISTRY Assessment/Plan A 36 yom with alcoholic liver cirrhosis with ascites, intoxicated. Leukocytosis, abdominla pain, jaundice and normal BUN, Cr. DF 49 r/o SBP Diagnostic paracentesis followed by Abx. Continue, or stop Abx as per results Prednisolone, Lasix and aldactone if negative for SBP Protonix 40 po qam Lactulose titrated to 4 bms/day 2 mg salt diet Fluid restriction Alcohol withdrawal management Daily CBC, CMP, direct bili, and PT Surveillance Egd
[2017-03-19] MEDS ORDERED: LORazepam 2 MG/ML SDV VIAL IVPUSH PRN (13:04)
--- NOTE | 2017-03-19 13:45 | EKG ---
Test Reason : Blood Pressure : / mmHG Vent. Rate : 107 BPM Atrial Rate : 107 BPM P-R Int : 186 ms QRS Dur : 094 ms QT Int : 366 ms P-R-T Axes : 063 -32 088 degrees QTc Int : 488 ms SINUS TACHYCARDIA POSSIBLE LEFT ATRIAL ENLARGEMENT LEFT AXIS DEVIATION SEPTAL INFARCT (CITED ON OR BEFORE 08-DEC-2016) ABNORMAL ECG WHEN COMPARED WITH ECG OF 19-MAR-2017 05:17, NO SIGNIFICANT CHANGE WAS FOUND Confirmed by ROSALIE GRUBBS MD ([id number]) on 03/19/2017 1:45:38 PM Referred By: Confirmed By:ROSALIE GRUBBS MD
[2017-03-19 15:34] LABS: MCH 34.5 pg (25.7-33.7); MCHC 33.2 g/dl (32.0-35.9); MEAN CELL VOLUME 103.9 fl (80-96); MEAN PLT VOLUME 9.8 fl (7.5-11.1); PLATELET COUNT 161 K/MM3 (134-434); RDW 20.3 % (11.9-15.9); WHITE BLOOD COUNT 12.2 K/mm3 (4.0-10.0)
[2017-03-19 15:41] LABS: PERITONEAL FLUID LYMPHOCYTE 56 %; PERITONEAL FLUID MACROPHAGE 36 %; PERITONEAL FLUID NEUTROPHIL 8 %
--- NOTE | 2017-03-19 15:56 | MSN ---
Progress Note (short form) - Note Progress Note: SUBJECTIVE CC: severe abdominal pain HPI: 36 y/o M with PMHx HTN, severe EtOH abuse (2 1/2 gallon vodka per day since age 8, according to admit H&P) admitted for severe, sharp, nonradiating L sided abdominal pain and ascites. Patient seen and examined today this AM. Patient reports slight tremor, feeling agitated and annoyed. Denies chills, fever, chest pain, SOB, vomiting. CIWA score 14. OBJECTIVE Last Vital Signs Temp Pulse Resp BP Pulse Ox 97.5 F L 110 H 20 129/90 97 03/19/17 14:20 03/19/17 14:20 03/19/17 14:20 03/19/17 14:20 03/19/17 09:00 General: Patient was resting in bed, curled up in position, in no acute distress. Eyes: No scleroicterus. Patient sensitive to light. Throat: Moist mucus membranes. Moist tongue. Heart: Tachycardic rate, regular rhythm. S1/S2 Lungs: Clear to auscultation B/L Abdomen: Severe distension, normoactive bowel sounds. Resonant to percussion x4 quadrants. No shifting dullness; skin appears tight. No tenderness to light palpation in all four quadrants. Extremities: Unable to be examined because patient stated he was agitated and refused. CBC, BMP 03/19/17 06:15 03/19/17 06:15 Abnormal Lab Results 03/19/17 03/19/17 03/19/17 06:15 06:15 06:15 WBC RBC Hgb Hct MCV MCH RDW PT with INR 19.50 H INR 1.73 H PTT (Actin FS) Potassium 3.1 L Chloride 109 H BUN 3 L Calcium 8.3 L Magnesium 1.4 L D Total Bilirubin 5.3 H AST 382 H Alkaline Phosphatase 566 H Albumin 2.5 L Lipase 536 H Vitamin B12 1714 H D 03/19/17 03/19/17 06:15 06:15 WBC 12.2 H RBC 2.47 L Hgb 8.5 L Hct 25.7 L MCV 103.9 H MCH 34.5 H RDW 20.3 H PT with INR INR PTT (Actin FS) 43.8 H Potassium Chloride BUN Calcium Magnesium Total Bilirubin AST Alkaline Phosphatase Albumin Lipase Vitamin B12 INR, PTT INR 1.73 (0.82-1.09) H 03/19/17 06:15 Hepatic Panel Total Bilirubin 5.3 mg/dL (0.2-1.0) H 03/19/17 06:15 AST 382 U/L (15-37) H 03/19/17 06:15 ALT 37 U/L (12-78) 03/19/17 06:15 Alkaline Phosphatase 566 U/L (45-117) H 03/19/17 06:15 Albumin 2.5 g/dl (3.4-5.0) L 03/19/17 06:15 Discriminant fxn 40.4 Current Medications Folic Acid (Folic Acid -) 1 mg PO DAILY [facility] Last Admin: 03/19/17 09:20 Dose: Not Given Furosemide (Lasix -) 40 mg PO DAILY [facility] Last Admin: 03/19/17 09:20 Dose: Not Given Lorazepam (Ativan Injection -) 1 mg IVPUSH Q4H PRN PRN Reason: ANXIETY Last Admin: 03/19/17 15:13 Dose: 1 mg Nicotine (Nicoderm Patch -) 14 mg TD DAILY [facility] Last Admin: 03/19/17 09:20 Dose: Not Given Pantoprazole Sodium (Protonix -) 20 mg PO DAILY [facility] Last Admin: 03/19/17 09:20 Dose: Not Given Spironolactone (Aldactone -) 100 mg PO DAILY [facility] Last Admin: 03/19/17 09:20 Dose: Not Given Thiamine HCl (Vitamin B1 -) 100 mg PO DAILY [facility] Last Admin: 03/19/17 09:20 Dose: Not Given Home Medications Medication Instructions Recorded Amlodipine Besylate [Norvasc -] 5 mg PO DAILY 12/08/16 ASSESSMENT 36 y/o M with PMHx HTN, severe EtOH dependence (2 1/2 gallon vodka per day since age 8, according to admit H&P) admitted for severe, sharp, nonradiating L sided abdominal pain and ascites. PLAN 1. Severe abdominal pain with ascites - Paracentesis in OR; f/u results to r/o SBP 2. Decreased H/H with elevated WBC - R/O lower GI bleeding; order stool occult blood - possible decreased H/H w/ variceal bleeding due to hx of ETOH dependence and possible portal HTN. - elevated WBC; r/o infectious etiology of hepatitis, SBP 3. ETOH abuse -Transaminitis with elevated ALP likely secondary to ETOH use; worsening of portal HTN and ascites. - Consider librium protocol if patient is clinically stable w/o hepatic encephalopathy - banana bag given in ER; thiamine, folic acid continue - Detox consult - Dr. Singh. - Ativan PRN anxiety/tremors - Alcoholic cirrhosis; discriminant fxn 40.4, pt would benefit from steroids. Start steroids after r/o SBP - Total bilirubin elevated; r/o portal HTN 4. Coagulopathy secondary to liver disease - Vit K, FFP given for procedure 5. Hypokalemia - replete KCL - repeat K level after 6. Macrocytic anemia - likely secondary to ETOH abuse; defective lipoprotein metabolism - B12 elevated; folate wnl 7. HTN - continue to hold Norvasc 5 mg PO daily; wnl 8. FEN - fluids: no fluids necessary - electrolytes: will replete K; hyperchloremia likely secondary to Lasix use - nutrition: sodium controlled diet, limited to 2g; fluid restriction 9. Dispo - Med/Surg; patient requires close observation since detox from ETOH abuse.
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
[2017-03-19] MEDS ORDERED: chlordiazePOXIDE HCL 25 MG CAPSULE PO PRN (17:43)
--- NOTE | 2017-03-19 17:47 | PN ---
Teaching Attending Note Name of Resident: Gardenia Ramirez ATTENDING PHYSICIAN STATEMENT I saw and evaluated the patient. I reviewed the resident's note and discussed the case with the resident. I agree with the resident's findings and plan as documented. SUBJECTIVE: Patient seen and examined. Uncomfortable, reports feels jittery and anxious but denies any nausea, vomiting or abdominal pain. Ox3, but weak looking and sleepy. OBJECTIVE: Vital Signs Period Temp Pulse Resp BP Sys/Malik Pulse Ox Last 24 Hr 97.5 F-98.4 F 97-110 18-20 129-144/78-90 97-100 Intake & Output 03/16/17 03/17/17 03/18/17 03/19/17 23:59 23:59 23:59 23:59 Intake Total 850 Output Total 3000 Balance -2150 Weight 277 lb 12.8 oz 277 lb 12.8 oz General: sitting in bed, mild lethargy, uncomfortable but in no acute distress CVS:S1S2 regular Chest: decreased effort, no rales or wheezing Abdomen: soft, distend, NT throughout, unable to appreciate bowel sounds Extremitis 1+ pitting pedal edema Neuro AAOx3, no asterexis but mild tremors noted Home Medication List Medication Instructions Recorded Confirmed Type Amlodipine Besylate [Norvasc -] 5 mg PO DAILY 12/08/16 03/19/17 History Active Medications Generic Name Dose Route Start Last Admin Trade Name Freq PRN Reason Stop Dose Admin Folic Acid 1 mg 03/19/17 10:00 03/19/17 09:20 Folic Acid - PO Not Given DAILY [facility] Furosemide 40 mg 03/19/17 10:00 03/19/17 09:20 Lasix - PO Not Given DAILY [facility] Lorazepam 1 mg 03/19/17 13:04 03/19/17 15:13 Ativan Injection - IVPUSH 1 mg Q4H PRN Administration ANXIETY Nicotine 14 mg 03/19/17 10:00 03/19/17 09:20 Nicoderm Patch - TD Not Given DAILY [facility] Pantoprazole Sodium 40 mg 03/19/17 17:40 Protonix - PO DAILY [facility] Prednisolone 40 mg 03/19/17 16:45 Prednisolone Unit Dose Cups PO DAILY [facility] Spironolactone 100 mg 03/19/17 10:00 03/19/17 09:20 Aldactone - PO Not Given DAILY [facility] Thiamine HCl 100 mg 03/19/17 10:00 03/19/17 09:20 Vitamin B1 - PO Not Given DAILY [facility] Laboratory Results - last 24 hr 03/18/17 03/18/17 03/19/17 16:30 16:30 00:02 WBC RBC Hgb Hct MCV MCH MCHC RDW Plt Count MPV Neutrophils % Lymphocytes % Platelet Estimate Adequate Anisocytosis 1+ Macrocytosis 1+ PT with INR INR PTT (Actin FS) Sodium Potassium Chloride Carbon Dioxide Anion Gap BUN Creatinine Creat Clearance w eGFR Random Glucose Calcium Phosphorus 2.6 D Magnesium Total Bilirubin AST ALT Alkaline Phosphatase Total Protein Albumin Total Amylase Lipase Vitamin B12 Serum Folate Urine Color Urine Appearance Urine pH Ur Specific [place] Urine Protein Urine Glucose (UA) Urine Ketones Urine Blood Urine Nitrite Urine Bilirubin Urine Urobilinogen Ur Leukocyte Esterase Peritoneal WBC Peritoneal RBC Periton Neutrophils Periton Lymphocytes Periton Macrophages Peritoneal Tot Protein Peritoneal LDH Peritoneal Glucose Blood Type AB POSITIVE Antibody Screen Negative 03/19/17 03/19/17 03/19/17 05:04 06:15 06:15 WBC RBC Hgb Hct MCV MCH MCHC RDW Plt Count MPV Neutrophils % Lymphocytes % Platelet Estimate Anisocytosis Macrocytosis PT with INR 19.50 H INR 1.73 H PTT (Actin FS) Sodium 145 Potassium 3.1 L Chloride 109 H Carbon Dioxide 23 Anion Gap 13 BUN 3 L Creatinine 0.9 Creat Clearance w eGFR > 60 Random Glucose 82 D Calcium 8.3 L Phosphorus Magnesium 1.4 L D Total Bilirubin 5.3 H AST 382 H ALT 37 Alkaline Phosphatase 566 H Total Protein 7.3 Albumin 2.5 L Total Amylase 85 Lipase 536 H Vitamin B12 Serum Folate Urine Color Lyla Urine Appearance Slcloudy Urine pH 5.0 Ur Specific [place] 1.017 Urine Protein Negative Urine Glucose (UA) Negative Urine Ketones Negative Urine Blood Negative Urine Nitrite Negative Urine Bilirubin 2.0 Urine Urobilinogen 4.0 e.u/dl Ur Leukocyte Esterase Negative Peritoneal WBC Peritoneal RBC Periton Neutrophils Periton Lymphocytes Periton Macrophages Peritoneal Tot Protein Peritoneal LDH Peritoneal Glucose Blood Type Antibody Screen 03/19/17 03/19/17 03/19/17 06:15 06:15 06:15 WBC 12.2 H RBC 2.47 L Hgb 8.5 L Hct 25.7 L MCV 103.9 H MCH 34.5 H MCHC 33.2 RDW 20.3 H Plt Count 161 MPV 9.8 Neutrophils % No Result Required. Lymphocytes % No Result Required. Platelet Estimate Anisocytosis Macrocytosis PT with INR INR PTT (Actin FS) 43.8 H Sodium Potassium Chloride Carbon Dioxide Anion Gap BUN Creatinine Creat Clearance w eGFR Random Glucose Calcium Phosphorus Magnesium Total Bilirubin AST ALT Alkaline Phosphatase Total Protein Albumin Total Amylase Lipase Vitamin B12 1714 H D Serum Folate 9 Urine Color Urine Appearance Urine pH Ur Specific [place] Urine Protein Urine Glucose (UA) Urine Ketones Urine Blood Urine Nitrite Urine Bilirubin Urine Urobilinogen Ur Leukocyte Esterase Peritoneal WBC Peritoneal RBC Periton Neutrophils Periton Lymphocytes Periton Macrophages Peritoneal Tot Protein Peritoneal LDH Peritoneal Glucose Blood Type Antibody Screen 03/19/17 12:26 WBC RBC Hgb Hct MCV MCH MCHC RDW Plt Count MPV Neutrophils % Lymphocytes % Platelet Estimate Anisocytosis Macrocytosis PT with INR INR PTT (Actin FS) Sodium Potassium Chloride Carbon Dioxide Anion Gap BUN Creatinine Creat Clearance w eGFR Random Glucose Calcium Phosphorus Magnesium Total Bilirubin AST ALT Alkaline Phosphatase Total Protein Albumin Total Amylase Lipase Vitamin B12 Serum Folate Urine Color Urine Appearance Urine pH Ur Specific [place] Urine Protein Urine Glucose (UA) Urine Ketones Urine Blood Urine Nitrite Urine Bilirubin Urine Urobilinogen Ur Leukocyte Esterase Peritoneal WBC 131 Peritoneal RBC 1,426 Periton Neutrophils 8 Periton Lymphocytes 56 Periton Macrophages 36 Peritoneal Tot Protein 2 Peritoneal LDH 103 Peritoneal Glucose 99 Blood Type Antibody Screen Microbiology 03/19/17 12:26 Peritoneal Fluid Gram Stain - Final 03/19/17 12:26 Peritoneal Fluid JULIA Preparation - Preliminary 03/19/17 12:26 Peritoneal Fluid Fungal Culture - Preliminary ASSESSMENT AND PLAN: 36 yom with HTN, ETOH abuse, Alcoholic cirrhosis with ascitis s/p prior paracentesis, further history unclear, sent in from [facility] with massive ascitis and ETOH leve of 331. -Acute decompensated alcoholic cirrhosis with ascitis/suspect hepatic encephalopathy -Acute alcohol hepatitis -anemia, ?acute on chronic -Coagulopathy, -Alcohol abuse -HTN PLan: s/p IR guded paracentesis, still with significant ascitis, though no tense or tender. Fluid studies neg for SBP. start perdnisolone. Continue lasix/aldactone, if fails to improve over next 2-3 days, will need repeat paracentesis. Protonix. Lactulose to titrate for 2-3 bowel movements a day. Use sedatives with caution. Dr. Singh consulted for detox, will follow up recommendations. h/h drop, no gross evidence of bleed. Check FOBT. Monitor H/h, continue PPI. Discussed with GI, plan for surveillance EGD once volume status/hepatic decompensation improve unless bleed or concerning drop in h/h. ETOH cessation counseling provided. Hold additional anti-hypertensives. DVTPPX with SCDS Dispo pending improvement in medical issues. Prognosis guided given decompensated cirrhosis with alcoholic hepatitis. Plan discussed with patient
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
[2017-03-19] MEDS: PrednisoLONE 15 MG/5 ML UNIT-DOSE CUP PO SCH (18:15)
[2017-03-19 20:06] LABS: URINE APPEARANCE CLEAR; URINE BLOOD NEGATIVE (NEGATIVE); URINE COLOR AMBER; URINE GLUCOSE (UA) NEGATIVE (NEGATIVE); URINE KETONE NEGATIVE (NEGATIVE); URINE LEUK ESTERASE NEGATIVE (NEGATIVE); URINE NITRITE NEGATIVE (NEGATIVE); URINE PROTEIN NEGATIVE (NEGATIVE); URINE UROBILINOGEN 4.0 E.U/dl mg/dL (0.2-1.0)
[2017-03-19 21:56] LABS: URINE LEUK ESTERASE Negative (NEGATIVE)
--- NOTE | 2017-03-19 21:59 | PN ---
Physical Exam: SUBJECTIVE: Patient seen and examined. Pt looks uncomfortable and c/o abdominal pain. No fever, chills. OBJECTIVE: Vital Signs Period Temp Pulse Resp BP Sys/Malik Pulse Ox Last 24 Hr 97.5 F-98.7 F 97-114 18-20 129-140/78-90 97 GENERAL: The patient is fully oriented, uncomfortable but in NAD. HEAD: Normal with no signs of trauma. EYES: PERRL, +sclera icterus. No ptosis. LUNGS: Breath sounds equal, clear to auscultation bilaterally, no wheezes, no crackles, no accessory muscle use. HEART: Regular rate and rhythm, S1, S2 without murmur, rub or gallop. ABDOMEN: Soft, +distended, unable to appreciate bowel sounds, no guarding, + shifting dullness, nontender to palpation. EXTREMITIES: Warm, well-perfused, no edema. NEUROLOGICAL: AAOx3, mild tremors noted. SKIN: Warm, dry, normal turgor, no rashes or lesions noted Laboratory Results - last 24 hr 03/18/17 03/18/17 03/19/17 16:30 16:30 00:02 WBC RBC Hgb Hct MCV MCH MCHC RDW Plt Count MPV Neutrophils % Lymphocytes % Platelet Estimate Adequate Anisocytosis 1+ Macrocytosis 1+ PT with INR INR PTT (Actin FS) Sodium Potassium Chloride Carbon Dioxide Anion Gap BUN Creatinine Creat Clearance w eGFR Random Glucose Calcium Phosphorus 2.6 D Magnesium Total Bilirubin AST ALT Alkaline Phosphatase Total Protein Albumin Total Amylase Lipase Vitamin B12 Serum Folate Urine Color Urine Appearance Urine pH Ur Specific [place] Urine Protein Urine Glucose (UA) Urine Ketones Urine Blood Urine Nitrite Urine Bilirubin Urine Urobilinogen Ur Leukocyte Esterase Peritoneal WBC Peritoneal RBC Periton Neutrophils Periton Lymphocytes Periton Macrophages Peritoneal Tot Protein Peritoneal LDH Peritoneal Glucose Blood Type AB POSITIVE Antibody Screen Negative 03/19/17 03/19/17 03/19/17 05:04 06:15 06:15 WBC RBC Hgb Hct MCV MCH MCHC RDW Plt Count MPV Neutrophils % Lymphocytes % Platelet Estimate Anisocytosis Macrocytosis PT with INR 19.50 H INR 1.73 H PTT (Actin FS) Sodium 145 Potassium 3.1 L Chloride 109 H Carbon Dioxide 23 Anion Gap 13 BUN 3 L Creatinine 0.9 Creat Clearance w eGFR > 60 Random Glucose 82 D Calcium 8.3 L Phosphorus Magnesium 1.4 L D Total Bilirubin 5.3 H AST 382 H ALT 37 Alkaline Phosphatase 566 H Total Protein 7.3 Albumin 2.5 L Total Amylase 85 Lipase 536 H Vitamin B12 Serum Folate Urine Color Lyla Urine Appearance Slcloudy Urine pH 5.0 Ur Specific [place] 1.017 Urine Protein Negative Urine Glucose (UA) Negative Urine Ketones Negative Urine Blood Negative Urine Nitrite Negative Urine Bilirubin 2.0 Urine Urobilinogen 4.0 e.u/dl Ur Leukocyte Esterase Negative Peritoneal WBC Peritoneal RBC Periton Neutrophils Periton Lymphocytes Periton Macrophages Peritoneal Tot Protein Peritoneal LDH Peritoneal Glucose Blood Type Antibody Screen 03/19/17 03/19/17 03/19/17 06:15 06:15 06:15 WBC 12.2 H RBC 2.47 L Hgb 8.5 L Hct 25.7 L MCV 103.9 H MCH 34.5 H MCHC 33.2 RDW 20.3 H Plt Count 161 MPV 9.8 Neutrophils % No Result Required. Lymphocytes % No Result Required. Platelet Estimate Anisocytosis Macrocytosis PT with INR INR PTT (Actin FS) 43.8 H Sodium Potassium Chloride Carbon Dioxide Anion Gap BUN Creatinine Creat Clearance w eGFR Random Glucose Calcium Phosphorus Magnesium Total Bilirubin AST ALT Alkaline Phosphatase Total Protein Albumin Total Amylase Lipase Vitamin B12 1714 H D Serum Folate 9 Urine Color Urine Appearance Urine pH Ur Specific [place] Urine Protein Urine Glucose (UA) Urine Ketones Urine Blood Urine Nitrite Urine Bilirubin Urine Urobilinogen Ur Leukocyte Esterase Peritoneal WBC Peritoneal RBC Periton Neutrophils Periton Lymphocytes Periton Macrophages Peritoneal Tot Protein Peritoneal LDH Peritoneal Glucose Blood Type Antibody Screen 03/19/17 03/19/17 12:26 17:45 WBC RBC Hgb Hct MCV MCH MCHC RDW Plt Count MPV Neutrophils % Lymphocytes % Platelet Estimate Anisocytosis Macrocytosis PT with INR INR PTT (Actin FS) Sodium Potassium Chloride Carbon Dioxide Anion Gap BUN Creatinine Creat Clearance w eGFR Random Glucose Calcium Phosphorus Magnesium Total Bilirubin AST ALT Alkaline Phosphatase Total Protein Albumin Total Amylase Lipase Vitamin B12 Serum Folate Urine Color Lyla Urine Appearance Clear Urine pH 6.0 Ur Specific [place] 1.016 Urine Protein Negative Urine Glucose (UA) Negative Urine Ketones Negative Urine Blood Negative Urine Nitrite Negative Urine Bilirubin 2.0 Urine Urobilinogen 4.0 e.u/dl Ur Leukocyte Esterase Peritoneal WBC 131 Peritoneal RBC 1,426 Periton Neutrophils 8 Periton Lymphocytes 56 Periton Macrophages 36 Peritoneal Tot Protein 2 Peritoneal LDH 103 Peritoneal Glucose 99 Blood Type Antibody Screen Active Medications Generic Name Dose Route Start Last Admin Trade Name Freq PRN Reason Stop Dose Admin Chlordiazepoxide HCl 50 mg 03/19/17 23:00 Librium - PO 03/20/17 17:01 [id number] [facility] Chlordiazepoxide HCl 25 mg 03/20/17 23:00 Librium - PO 03/21/17 17:01 [id number] R[facility] Chlordiazepoxide HCl 15 mg 03/21/17 23:00 Librium - PO 03/22/17 17:01 [id number] ROD[facility] Chlordiazepoxide HCl 25 mg 03/19/17 17:43 Librium - PO 03/22/17 17:42 Q4H PRN WITHDRAWAL(CONT SUBST) Folic Acid 1 mg 03/19/17 10:00 03/19/17 09:20 Folic Acid - PO Not Given DAILY [facility] Furosemide 40 mg 03/19/17 10:00 03/19/17 09:20 Lasix - PO Not Given DAILY [facility] Lorazepam 1 mg 03/19/17 13:04 03/19/17 15:13 Ativan Injection - IVPUSH 1 mg Q4H PRN Administration ANXIETY Nicotine 14 mg 03/19/17 10:00 03/19/17 09:20 Nicoderm Patch - TD Not Given DAILY [facility] Pantoprazole Sodium 40 mg 03/19/17 17:40 Protonix - PO DAILY [facility] Prednisolone 40 mg 03/19/17 16:45 03/19/17 18:15 Prednisolone Unit Dose Cups PO 40 mg DAILY RODNEY Administration Spironolactone 100 mg 03/19/17 10:00 03/19/17 09:20 Aldactone - PO Not Given DAILY [facility] Thiamine HCl 100 mg 03/19/17 10:00 03/19/17 09:20 Vitamin B1 - PO Not Given DAILY [facility] IMAGIN03/18/17 Renal US -> (1) Hepatomegaly with echogenic parenchyma representing fibrosis and/or steatosis. Nodular liver conture suggestive of cirrhosis. (2) Reversal of flow in portal vein. (3) Splenomegaly, moderate ascites x 4 quadrants. (4) No cholelithiasis/cholecystitis. (5) No hydronephrosis. > 1cm difference in kidney size (L>R) could be 2/2 vesicular insufficiency. ASSESSMENT/PLAN: 36yo M with PMH of htn, hld, etoh abuse, presented with abdominal pain and ascites, admitted to r/o spontaneous bacterial peritonitis. # acute decompensated alcoholic cirrhosis with ascites / suspect hepatic encephalopathy - s/p IR guided paracentesis peritoneal WBC < 250, ruling out SBP - start prednisolone - continue Lasix and Spironolactone - GI (Dr. Gabriel) recs appreciated: titrate lactulose to 4 bms/day. # etoh abuse - monitor for s/s of withdrawal - Detox Consult (Dr. Singh) recs appreciated: Librium protocol - Ativan prn - continue folic acid and thiamine # H/H drop - continue to monitor - f/u FOBT - continue Protonix for GI ppx - GI (Dr. Gabriel) recs appreciated: Surveillance EGD - check for varices # electrolyte abnormalities - hypokalemia repleted with KCl 10meq IVPB x 3 bags - hypomagnesemia repleted with Mg Sulfate IVPB 2g # FEN - Fluids: fluid restriction - Electrolytes: continue to monitor - Nutrition: low sodium diet # Prophylaxis - DVT ppx with christal SCDs - GI ppx with Protonix Visit type - Emergency Visit Emergency Visit: Yes ED Registration Date: 03/18/17 Care time: The patient presented to the Emergency Department on the above date and was hospitalized for further evaluation of their emergent condition. - New Patient This patient is new to me today: Yes Date on this admission: 03/19/17 - Critical Care Critical Care patient: No
[2017-03-19] MEDS: chlordiazePOXIDE HCL 25 MG CAPSULE PO SCH (22:28)
[2017-03-19 22:36] LABS: BASO # 0.4 # (0.1-1); EOS # 0.1 # (0-4.5); LYMPH # 2.6 (8-40); MONO # 0.9 # (3.8-10.2); NEUT # 8.3 # (42.8-82.8); TOTAL CELLS COUNTED 100
[2017-03-19 22:37] LABS: ANISOCYTOSIS 1+; HYPOCHROMIA 2+; MACROCYTOSIS 2+; POIKILOCYTOSIS 1+; SCHISTOCYTES OCCASIONAL; TARGET CELLS 1+
[2017-03-19] MEDS ORDERED: chlordiazePOXIDE HCL 25 MG CAPSULE PO SCH (23:00)
[2017-03-20] MEDS: chlordiazePOXIDE HCL 25 MG CAPSULE PO SCH ×4 (05:52→22:01)
[2017-03-20 07:43] LABS: MCH 34.3 pg (25.7-33.7); MCHC 33.8 g/dl (32.0-35.9); MEAN CELL VOLUME 101.6 fl (80-96); MEAN PLT VOLUME 9.9 fl (7.5-11.1); PLATELET COUNT 117 K/MM3 (134-434); RDW 19.2 % (11.9-15.9); WHITE BLOOD COUNT 10.2 K/mm3 (4.0-10.0)
[2017-03-20 08:14] LABS: ALBUMIN 2.1 g/dl (3.4-5.0); ANION GAP 12 (8-16); CALCIUM 8.2 mg/dL (8.5-10.1); CO2 23 mmol/L (21-32); CREATININE 0.9 mg/dL (0.7-1.3); GLUCOSE,RANDOM 112 mg/dL (74-106); MAGNESIUM 1.5 mg/dL (1.8-2.4); PHOSPHOROUS 2.2 mg/dL (2.5-4.9); SGOT/AST 359 U/L (15-37); SGPT/ALT 38 U/L (12-78)
[2017-03-20 08:15] LABS: ALK PHOS 561 U/L (45-117); BILIRUBIN,TOTAL 4.5 mg/dL (0.2-1.0); TOT PROT 6.8 g/dl (6.4-8.2)
[2017-03-20] MEDS ORDERED: NAPH,MB-DB/K PH,MBDB POWDER PACKET PO ONE (08:24)
[2017-03-20] MEDS: FUROSEMIDE 40 MG TABLET (FP) PO SCH (09:25)
[2017-03-20] MEDS: PANTOPRAZOLE 20 MG TABLET (FP) PO SCH (09:25)
[2017-03-20] MEDS: NICOTINE 14 MG/24 HOURS TOPICAL PATCH TD SCH (09:25)
[2017-03-20] MEDS: THIAMINE HCL 100 MG TABLET (FP) PO SCH (09:25)
[2017-03-20] MEDS: MAGNESIUM OXIDE 400 MG TABLET (FP) PO SCH ×2 (09:25→21:38)
[2017-03-20] MEDS: FOLIC ACID 1 MG TABLET (FP) PO SCH (09:25)
[2017-03-20] MEDS: SPIRONOLACTONE 25 MG TABLET (FP) PO SCH (09:25)
[2017-03-20] MEDS ORDERED: PT OWN MED DRAWER 7, Y5N ONE (09:27)
[2017-03-20] MEDS: PrednisoLONE 15 MG/5 ML UNIT-DOSE CUP PO SCH (09:28)
--- NOTE | 2017-03-20 15:33 | PN ---
GI Progress Note Subjective: GI F/U FOR DR POSADA: NO GI C/O ONLY REPORTS WRIST AND TOE PAIN NO N/V/F/C/S NO ABD PAIN AT ALL PT ASKING FORM MORE FOOD AND HAS EATEN SOLIDS FINE NOT CONFUSED NOT TREMEULOUS AT THIS TIME - Objective Vital Signs: Vital Signs Temperature 98.0 F 03/20/17 09:23 Pulse Rate 115 H 03/20/17 09:23 Respiratory Rate 20 03/20/17 09:23 Blood Pressure 146/89 03/20/17 09:23 O2 Sat by Pulse Oximetry (%) 98 03/19/17 21:00 Constitutional: Well Nourished, No Distress, Calm Eyes: Yes: WNL (+bs/ OBESE, VERY SOFT AND nt TO PALPATION), Sclera Icterus Labs: CBC, BMP 03/20/17 06:10 03/20/17 06:10 INR, PTT INR 1.73 (0.82-1.09) H 03/19/17 06:15 Assessment/Plan ETOH CIRRHOSIS ETOH INTOX/ABUSE ALC HEP/ MILD PT ON STEROIDS FOR ALC HEP NO EVIDENCE OF CLINICAL DETERIOARATION AT THIS TIME NO LIVER FAILURE AT THIS TIME DOES NOT APPEAR SEPTIC ABD VERY SOFT AND NT CONTINUE CURRENT RX ADVANCE DIET 2GM NA OBSERVE RESTRICT SALT WILL NEED OUTPATIENT LIVER F/U AFTER ETOH DETOX NO EVIDENCE OF W/D AT THIS TIME MD YAEL
--- NOTE | 2017-03-20 15:36 | PN ---
Teaching Attending Note Name of Resident: Gardenia Ramirez ATTENDING PHYSICIAN STATEMENT Time of evaluation: 9:10 AM I saw and evaluated the patient. I reviewed the resident's note and discussed the case with the resident. I agree with the resident's findings and plan as documented. SUBJECTIVE: Patient seen and examined. denies abdominal pain or dyspnea. No fevers/chills. Jitteriness/tremors better. OBJECTIVE: Vital Signs Period Temp Pulse Resp BP Sys/Malik Pulse Ox Last 24 Hr 97.9 F-98.7 F 108-115 20-20 128-146/72-89 98 Intake & Output 03/17/17 03/18/17 03/19/17 03/20/17 23:59 23:59 23:59 23:59 Intake Total 1090 0 Output Total 3000 Balance -1910 0 Weight 277 lb 12.8 oz 277 lb 12.8 oz 242 lb 2 oz General: lying in bed in no acute distress CVs;S1S2 regular, rapid Chest: no rales or wheezing Abdomen; soft, distended but improved exam from yesterday, NT, no voluntary or involuntary guarding or rigidity Extremities: tremors improved, no asterexis Home Medication List Medication Instructions Recorded Confirmed Type Amlodipine Besylate [Norvasc -] 5 mg PO DAILY 12/08/16 03/19/17 History Active Medications Generic Name Dose Route Start Last Admin Trade Name Freq PRN Reason Stop Dose Admin Chlordiazepoxide HCl 50 mg 03/19/17 23:00 03/20/17 11:48 Librium - PO 03/20/17 17:01 50 mg [id number] RODNEY Administration Chlordiazepoxide HCl 25 mg 03/20/17 23:00 Librium - PO 03/21/17 17:01 [id number] [facility] Chlordiazepoxide HCl 15 mg 03/21/17 23:00 Librium - PO 03/22/17 17:01 [id number] [facility] Chlordiazepoxide HCl 25 mg 03/19/17 17:43 Librium - PO 03/22/17 17:42 Q4H PRN WITHDRAWAL(CONT SUBST) Folic Acid 1 mg 03/19/17 10:00 03/20/17 09:25 Folic Acid - PO 1 mg DAILY RODNEY Administration Furosemide 40 mg 03/19/17 10:00 03/20/17 09:25 Lasix - PO 40 mg DAILY [facility]ODNEY Administration Lorazepam 1 mg 03/19/17 13:04 03/19/17 15:13 Ativan Injection - IVPUSH 1 mg Q4H PRN Administration ANXIETY Magnesium Oxide 400 mg 03/20/17 10:00 03/20/17 09:25 Mag-Ox - PO 03/20/17 23:59 400 mg BID RODNEY Administration Nicotine 14 mg 03/19/17 10:00 03/20/17 09:25 Nicoderm Patch - TD Not Given DAILY [facility] Pantoprazole Sodium 40 mg 03/19/17 17:40 03/20/17 09:25 Protonix - PO 40 mg DAILY RODNEY Administration Prednisolone 40 mg 03/19/17 16:45 03/20/17 09:28 Prednisolone Unit Dose Cups PO 40 mg DAILY RODNEY Administration Spironolactone 100 mg 03/19/17 10:00 03/20/17 09:25 Aldactone - PO 100 mg DAILY RODNEY Administration Thiamine HCl 100 mg 03/19/17 10:00 03/20/17 09:25 Vitamin B1 - PO 100 mg DAILY RODNEY Administration Laboratory Results - last 24 hr 03/19/17 03/19/17 03/19/17 06:15 06:15 12:26 WBC 12.2 H RBC 2.47 L Hgb 8.5 L Hct 25.7 L MCV 103.9 H MCH 34.5 H MCHC 33.2 RDW 20.3 H Plt Count 161 MPV 9.8 Total Counted 100 Neutrophils % No Result Required. Neutrophils % (Manual) 73.0 Lymphocytes % No Result Required. Lymphocytes % (Manual) 26.0 Monocytes % (Manual) 1 L Hypochromia 2+ Poikilocytosis 1+ Anisocytosis 1+ Macrocytosis 2+ Target Cells 1+ Schistocytes Occasional Sodium Potassium Chloride Carbon Dioxide Anion Gap BUN Creatinine Creat Clearance w eGFR Random Glucose Calcium Phosphorus Magnesium Total Bilirubin AST ALT Alkaline Phosphatase Total Protein Albumin Tumor Marker AFP 2.5 Urine Color Urine Appearance Urine pH Ur Specific [place] Urine Protein Urine Glucose (UA) Urine Ketones Urine Blood Urine Nitrite Urine Bilirubin Urine Urobilinogen Ur Leukocyte Esterase Periton Neutrophils 8 Periton Lymphocytes 56 Periton Macrophages 36 03/19/17 03/20/17 03/20/17 17:45 06:10 06:10 WBC 10.2 H RBC 2.52 L Hgb 8.6 L Hct 25.6 L MCV 101.6 H MCH 34.3 H MCHC 33.8 RDW 19.2 H Plt Count 117 L D MPV 9.9 Total Counted Neutrophils % Neutrophils % (Manual) Lymphocytes % Lymphocytes % (Manual) Monocytes % (Manual) Hypochromia Poikilocytosis Anisocytosis Macrocytosis Target Cells Schistocytes Sodium 143 Potassium 3.8 D Chloride 108 H Carbon Dioxide 23 Anion Gap 12 BUN 3 L Creatinine 0.9 Creat Clearance w eGFR > 60 Random Glucose 112 H D Calcium 8.2 L Phosphorus 2.2 L Magnesium 1.5 L Total Bilirubin 4.5 H AST 359 H ALT 38 Alkaline Phosphatase 561 H Total Protein 6.8 Albumin 2.1 L Tumor Marker AFP Urine Color Lyla Urine Appearance Clear Urine pH 6.0 Ur Specific [place] 1.016 Urine Protein Negative Urine Glucose (UA) Negative Urine Ketones Negative Urine Blood Negative Urine Nitrite Negative Urine Bilirubin 2.0 Urine Urobilinogen 4.0 e.u/dl Ur Leukocyte Esterase Negative Periton Neutrophils Periton Lymphocytes Periton Macrophages Microbiology 03/19/17 12:26 Peritoneal Fluid Gram Stain - Final 03/19/17 12:26 Peritoneal Fluid Body Fluid Culture - Preliminary NO AEROBIC GROWTH, 24 HRS 03/19/17 12:26 Peritoneal Fluid JULIA Preparation - Preliminary 03/19/17 12:26 Peritoneal Fluid Fungal Culture - Preliminary ASSESSMENT AND PLAN: 36 yom with HTN, ETOH abuse, Alcoholic cirrhosis with ascitis s/p prior paracentesis, further history unclear, sent in from [facility] Detox with massive ascitis and ETOH leve of 331. -Acute decompensated alcoholic cirrhosis with ascitis/suspect hepatic encephalopathy -Acute alcohol hepatitis -anemia, ?acute on chronic -Coagulopathy, -Alcohol abuse -HTN PLan: s/p IR guded paracentesis,diuresing, improved. Continue to monitor. Will need repeat paracentesis if recurrent ascitis or poor response to diuresis. Fluid studies neg for SBP. start perdnisolone. Continue lasix/aldactone, if fails to improve over next 2-3 days, will need repeat paracentesis. Protonix. Lactulose to titrate for 2-3 bowel movements a day. Use sedatives with caution. Dr. Singh's input noted, on librium detox. h/h drop, no gross evidence of bleed, stable now. Check FOBT. Monitor H/h, continue PPI. Discussed with GI, plan for surveillance EGD once volume status/hepatic decompensation improve unless bleed or concerning drop in h/h. ETOH cessation counseling provided. Hold additional anti-hypertensives. DVTPPX with SCDS Dispo pending improvement in medical issues. Prognosis guided given decompensated cirrhosis with alcoholic hepatitis. Plan discussed with patient
--- NOTE | 2017-03-20 16:23 | EKG ---
Test Reason : Blood Pressure : / mmHG Vent. Rate : 105 BPM Atrial Rate : 105 BPM P-R Int : 198 ms QRS Dur : 080 ms QT Int : 354 ms P-R-T Axes : 077 -36 066 degrees QTc Int : 467 ms SINUS TACHYCARDIA LEFT AXIS DEVIATION SEPTAL INFARCT (CITED ON OR BEFORE 08-DEC-2016) ABNORMAL ECG WHEN COMPARED WITH ECG OF 09-DEC-2016 17:27, QUESTIONABLE CHANGE IN INITIAL [employer]CES OF ANTERIOR LEADS Confirmed by HERMELINDO JONES MD ([id number]) on 03/20/2017 4:22:59 PM Referred By: Confirmed By:HERMELINDO JONES MD
[2017-03-20] MEDS ORDERED: LACTULOSE 20 GM/30 ML UDC (FOR ORAL USE ONLY) PO ONE (18:57)
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
[2017-03-20] MEDS ORDERED: chlordiazePOXIDE 5 MG CAPSULE PO SCH (23:00)
[2017-03-21] MEDS: chlordiazePOXIDE HCL 25 MG CAPSULE PO SCH ×3 (05:13→17:27)
[2017-03-21] MEDS ORDERED: LACTULOSE 20 GM/30 ML UDC (FOR ORAL USE ONLY) PO ONE (06:00)
[2017-03-21 08:21] LABS: BASO % 0.2 % (0-2.0); LYMPH # 2.5 (8-40); MCH 33.4 pg (25.7-33.7); MCHC 32.7 g/dl (32.0-35.9); MEAN CELL VOLUME 102.2 fl (80-96); MEAN PLT VOLUME 11.1 fl (7.5-11.1); MONO # 0.8 # (3.8-10.2); NEUT # 14.5 # (42.8-82.8); NEUT % 80.9 % (42.8-82.8); PLATELET COUNT 126 K/MM3 (134-434); RDW 19.1 % (11.9-15.9); WHITE BLOOD COUNT 17.9 K/mm3 (4.0-10.0)
[2017-03-21 08:46] LABS: INR 1.86 (0.82-1.09)
[2017-03-21 08:56] LABS: ANION GAP 9 (8-16); CALCIUM 7.5 mg/dL (8.5-10.1); CO2 25 mmol/L (21-32); GLUCOSE,RANDOM 122 mg/dL (74-106); SGOT/AST 288 U/L (15-37); SGPT/ALT 37 U/L (12-78)
[2017-03-21 08:57] LABS: ALK PHOS 509 U/L (45-117); TOT PROT 6.6 g/dl (6.4-8.2)
[2017-03-21] MEDS: SPIRONOLACTONE 25 MG TABLET (FP) PO SCH (09:17)
[2017-03-21] MEDS: THIAMINE HCL 100 MG TABLET (FP) PO SCH (09:17)
[2017-03-21] MEDS: FOLIC ACID 1 MG TABLET (FP) PO SCH (09:17)
[2017-03-21] MEDS: FUROSEMIDE 40 MG TABLET (FP) PO SCH (09:17)
[2017-03-21] MEDS: NICOTINE 14 MG/24 HOURS TOPICAL PATCH TD SCH (09:18)
[2017-03-21] MEDS: PrednisoLONE 15 MG/5 ML UNIT-DOSE CUP PO SCH (09:18)
[2017-03-21] MEDS: PANTOPRAZOLE 20 MG TABLET (FP) PO SCH (09:18)
--- NOTE | 2017-03-21 14:41 | PN ---
Teaching Attending Note Name of Resident: . ATTENDING PHYSICIAN STATEMENT time of evaluation: 11:45 AM SUBJECTIVE: Patient seen and examined. Denies any nausea, vomiting, abdominal pain,dyspnea, new cough, fevers, chills. Diarrhea from lactulose, intermittently refusing. OBJECTIVE: Vital Signs Period Temp Pulse Resp BP Sys/Malik Pulse Ox Last 24 Hr 98.1 F-98.6 F 105-110 20-20 110-143/64-89 97-100 Intake & Output 03/18/17 03/19/17 03/20/17 03/21/17 23:59 23:59 23:59 23:59 Intake Total 1090 300 500 Output Total 3000 625 Balance -1910 -325 500 Weight 277 lb 12.8 oz 277 lb 12.8 oz 242 lb 2 oz 246 lb 1.6 oz General: sitting in bed in no acute distress CVS:S1s2 regular, tachy Chest: decreased breath sounds at bases, no wheezing or rales Abdomen: soft, more distended than yesterday, NT Extremities: no edema noted Neuro AAOx3, no asterexis or tremors noted Home Medication List Medication Instructions Recorded Confirmed Type Amlodipine Besylate [Norvasc -] 5 mg PO DAILY 12/08/16 03/19/17 History Active Medications Generic Name Dose Route Start Last Admin Trade Name Freq PRN Reason Stop Dose Admin Chlordiazepoxide HCl 25 mg 03/20/17 23:00 03/21/17 11:21 Librium - PO 03/21/17 17:01 25 mg [id number] RODNEY Administration Chlordiazepoxide HCl 15 mg 03/21/17 23:00 Librium - PO 03/22/17 17:01 Q0E-NIS RODNEY Chlordiazepoxide HCl 25 mg 03/19/17 17:43 Librium - PO 03/22/17 17:42 Q4H PRN WITHDRAWAL(CONT SUBST) Folic Acid 1 mg 03/19/17 10:00 03/21/17 09:17 Folic Acid - PO 1 mg DAILY RODNEY Administration Furosemide 40 mg 03/19/17 10:00 03/21/17 09:17 Lasix - PO 40 mg DAILY RODNEY Administration Lorazepam 1 mg 03/19/17 13:04 03/19/17 15:13 Ativan Injection - IVPUSH 1 mg Q4H PRN Administration ANXIETY Nicotine 14 mg 03/19/17 10:00 03/21/17 09:18 Nicoderm Patch - TD Not Given DAILY RODNEY Pantoprazole Sodium 40 mg 03/19/17 17:40 03/21/17 09:18 Protonix - PO 40 mg DAILY RODNEY Administration Prednisolone 40 mg 03/19/17 16:45 03/21/17 09:18 Prednisolone Unit Dose Cups PO 40 mg DAILY RODNEY Administration Spironolactone 100 mg 03/19/17 10:00 03/21/17 09:17 Aldactone - PO 100 mg DAILY RODNEY Administration Thiamine HCl 100 mg 03/19/17 10:00 03/21/17 09:17 Vitamin B1 - PO 100 mg DAILY RODNEY Administration Laboratory Results - last 24 hr 03/21/17 03/21/17 03/21/17 08:05 08:05 08:05 WBC 17.9 H D RBC 2.55 L Hgb 8.5 L Hct 26.1 L MCV 102.2 H MCH 33.4 MCHC 32.7 RDW 19.1 H Plt Count 126 L MPV 11.1 D Neutrophils % 80.9 Lymphocytes % 14.2 D Monocytes % 4.7 Eosinophils % 0.0 D Basophils % 0.2 PT with INR 21.00 H INR 1.86 H Sodium 140 Potassium 3.5 Chloride 106 Carbon Dioxide 25 Anion Gap 9 BUN 4 L D Creatinine 1.0 Creat Clearance w eGFR > 60 Random Glucose 122 H Calcium 7.5 L Total Bilirubin 4.0 H AST 288 H ALT 37 Alkaline Phosphatase 509 H Total Protein 6.6 Albumin 2.0 L Microbiology 03/19/17 12:26 Peritoneal Fluid Gram Stain - Final 03/19/17 12:26 Peritoneal Fluid Body Fluid Culture - Final NO GROWTH OF AEROBIC ORGANISMS AFTER 48 HOURS INCUBATION 03/19/17 12:26 Peritoneal Fluid Anaerobic Culture - Final NO ANAEROBES WERE ISOLATED 03/19/17 12:26 Peritoneal Fluid JULIA Preparation - Preliminary 03/19/17 12:26 Peritoneal Fluid Fungal Culture - Preliminary ASSESSMENT AND PLAN: 36 yom with HTN, ETOH abuse, Alcoholic cirrhosis with ascitis s/p prior paracentesis, further history unclear, sent in from [facility] with massive ascitis and ETOH leve of 331. -Acute decompensated alcoholic cirrhosis with ascitis/suspect hepatic encephalopathy -Acute alcohol hepatitis -anemia, ?acute on chronic, stable now -Coagulopathy, -Alcohol abuse -HTN -Leucocytosis, suspect steroid induced margination, SBP ruled out, no new focal symptoms or fevers currently. PLan: s/p IR guded paracentesis,diuresing, however abdomen seems bigger today though soft and non tender. Continue lasix/aldactone, if continues to accumulate, will talk to IR on Wednesday for repeat paracentesis. Fluid studies neg for SBP, cultures neg so far. Perdnisolone day 2. Leucocytosis, suspect steroid induced. SBP ruled out, also patient with no fevers or focal symptoms. Monitor closely and trend WBC for now. Protonix. Lactulose to titrate for 2-3 bowel movements a day. Use sedatives with caution. Dr. Singh's input noted, on librium detox. D/c prn IV ativan. h/h drop, now plateaued, no gross evidence of bleed, stable now. Check FOBT. Monitor H/h, continue PPI. Discussed with GI, plan for surveillance EGD once volume status/hepatic decompensation improve unless bleed or concerning drop in h/h. ETOH cessation counseling provided. Hold additional anti-hypertensives. DVTPPX with SCDS Dispo pending improvement in medical issues. Prognosis guided given decompensated cirrhosis with alcoholic hepatitis. Plan discussed with patient
--- NOTE | 2017-03-21 15:15 | PN ---
GI Progress Note Subjective: GI F/U FOR DR POSADA: NO GI COMPLAINTS EATING FINE NO BLEEDING NOTED PT IS ORIENTED AND NOT CONFUSED AT THIS MOMENT ONLY C/O LEFT HAND PAIN AND ANKLE SWELLING NO N/V/F/C/S - Objective Vital Signs: Vital Signs Temperature 98.1 F 03/21/17 08:55 Pulse Rate 105 H 03/21/17 08:55 Respiratory Rate 20 03/21/17 08:55 Blood Pressure 121/78 03/21/17 08:55 O2 Sat by Pulse Oximetry (%) 100 03/21/17 09:00 Constitutional: Well Nourished, No Distress, Calm Eyes: Yes: Sclera Icterus Neck: Yes: WNL (+BS, VERY SOFT/ NT ASCITES/ NO REBOUND OR GUARDING) Edema: Yes (MINIMAL ANKLE EDEMA) Labs: CBC, BMP 03/21/17 08:05 03/21/17 08:05 INR, PTT INR 1.86 (0.82-1.09) H 03/21/17 08:05 Assessment/Plan 36M WITH DECOMPENSATED ETOH CIRRHOSIS/ ALC HEP ON PO STEROIDS BY DR POSADA NO FURTHER DETERIORATION NOT ENCEPHALOPATHIC TODAY NO CLINICAL OR LAB FINDINGS TO SUPPORT SBP WOULD PROVE DIURETIC REFRACTORY ASCITES PRIOR TO REPEATING PARACENTSSIS PT ON STEROIDS AND HAS RISK OF INTRODUCING INFECTION AGREE THAT WBC IS MOST LIKELY DUE TO STEROID EFFECT NEEDS ETOH DETOX/ NO EVIDENCE OF W/D AT THIS MOMENT WILL NEED OUTPATIENT LIVER F/U ONCE DETOXED OFF ETOH SALT RESTRICTED DIET F/U WT DAILY INCREASE DIURETICS PER KIDNEY FXN TOLERANCE MD YAEL
[2017-03-21 20:00] VITALS: BP 135/99; PULSE 107; TEMP 98.2
[2017-03-21] MEDS ORDERED: chlordiazePOXIDE 5 MG CAPSULE PO SCH (23:00)
--- NOTE | 2017-03-22 00:12 | HOSP ---
Physical Examination Vital Signs: Vital Signs Temperature 98.2 F 03/21/17 19:58 Pulse Rate 107 H 03/21/17 19:58 Respiratory Rate 20 03/21/17 19:58 Blood Pressure 135/99 03/21/17 19:58 O2 Sat by Pulse Oximetry (%) 100 03/21/17 09:00 Labs: CBC, BMP 03/21/17 08:05 03/21/17 08:05 Hospitalist Encounter Assessment: Patient decide to leave against medical advice I explained to the patient the risk and disadvantages of leaving the hospital without finishing treatment including . Patient signs the form in the presence of the nurse and left the hospital . Patient has a full capacity. Visit type - Emergency Visit Emergency Visit: Yes ED Registration Date: 03/18/17 Care time: The patient presented to the Emergency Department on the above date and was hospitalized for further evaluation of their emergent condition. - New Patient This patient is new to me today: No - Critical Care Critical Care patient: No
--- NOTE | 2017-03-23 14:28 | PATH ---
Cytology Non-Gynecological Report Patient Name: CHRISTOPHER PRADHAN Med. Rec. #: [id number] /Age/Gender: 1980 (Age: 36) / M Account: [id number] Location: [facility] MED/SURG Taken: 03/19/2017 Received: 03/19/2017 Reported: 03/23/2017 Physicians: PHYSICIAN EMERGENCY DEPT Clifton Gamble M.D. Specimen(s) Received A: PERITONEAL FLUID B: PERITONEAL FLUID Clinical History Ascites Final Diagnosis A & B. ABDOMINAL FLUID, PARACENTESIS: SATISFACTORY FOR EVALUATION. NO MALIGNANT CELLS IDENTIFIED. FEW MESOTHELIAL CELLS AND LYMPHOCYTES PRESENT. Comment: Recommend correlation with clinical findings and follow up as clinically indicated. Electronically Signed Etta Do M.D. Gross Description A. Approximately 20 cc of yellow fluid received fixed in 50% alcohol. Two cytofunnels and one cellblock prepared. B. Approximately 1700 cc of yellow fluid received fresh. Two cytofunnels and one cellblock prepared.
== END 2017-03-21 22:20 | disposition left against medical advice (07) | DRG 264 ==
LOC: JER 15:17 → JERBED 18:36 → J7W 03-19 00:33
PROVIDERS: ADMIT Hospitalist; ATTEND Hospitalist
PROC: 0W9G3ZX Drainage of Peritoneal Cavity, Percutaneous Approach, Diagnostic (ICD-10-PCS; principal; 2017-03-19)
PROC: HZ2ZZZZ Detoxification Services for Substance Abuse Treatment (ICD-10-PCS; 2017-03-19)
PROC: 30233K1 Transfusion of Nonautologous Frozen Plasma into Peripheral Vein, Percutaneous Approach (ICD-10-PCS; 2017-03-19)
DX: K70.11 Alcoholic hepatitis with ascites (principal); K85.20 Alcohol induced acute pancreatitis without necrosis or infection; E87.8 Other disorders of electrolyte and fluid balance, not elsewhere classified; I10 Essential (primary) hypertension; F17.200 Nicotine dependence, unspecified, uncomplicated; E80.6 Other disorders of bilirubin metabolism; D68.8 Other specified coagulation defects; E87.6 Hypokalemia; D64.9 Anemia, unspecified; J45.909 Unspecified asthma, uncomplicated; R79.89 Other specified abnormal findings of blood chemistry; Y90.8 Blood alcohol level of 240 mg/100 ml or more; F10.230 Alcohol dependence with withdrawal, uncomplicated; E83.42 Hypomagnesemia; M79.642 Pain in left hand; E83.39 Other disorders of phosphorus metabolism
CPT/HCPCS: 36415; 36430; 73130-TC-LT; 76705-TC; 76775-TC; 76942-TC; 80053; 80307; 81003; 82105; 82150; 82272; 82607; 82746; 82945; 83615; 83690; 83735; 84100; 84157; 85025; 85027; 85610; 85730; 86850; 86900; 86901; 87070; 87075; 87102; 87116; 87205; 87206; 87210; 88108; 88305-TC; 89051; 93005; 93010; 99284-25; P9017